=== PATIENT | male | born 1940 | race Caucasian/White ===

== ENCOUNTER → 2016-11-10 | Outpatient (CLI) | payer MEDICARE, BC ==
--- NOTE | 2016-11-10 11:27 | XR ---
EXAMINATION TYPE: XR hand complete LT DATE OF EXAM: 11/10/2016 10:30 AM CLINICAL HISTORY: Laceration injury third digit with pain. Hyperextension thumb injury yesterday. TECHNIQUE: Frontal, lateral and oblique images of the left hand are obtained. COMPARISON: None. FINDINGS: There is no acute fracture/dislocation evident in the left hand. There is joint space loss with spurring base of first metacarpal. The overlying soft tissue appears unremarkable without radi odense foreign body seen. IMPRESSION: There is no acute fracture or dislocation in the left hand. Degenerative change base of first metacarpal noted.
== END | disposition home or self-care (01) ==
LOC: RADXRMAIN 10:13
PROVIDERS: ATTEND Internal Medicine Geriatric Medicine
DX: M79.642 Pain in left hand (principal)

== ENCOUNTER 2017-09-06 18:59 | Emergency (ER) | payer MEDICARE, BC ==
[2017-09-06] MEDS ORDERED: GLUCAGON 1 MG/ML VIAL IVP STA (19:17)
[2017-09-06] MEDS ORDERED: GLUCAGON 1 MG/ML VIAL IM STA (19:25)
--- NOTE | 2017-09-06 20:15 | ED ---
General Adult HPI - General Chief complaint: Recheck/Abnormal Lab/Rx Stated complaint: fb in throat Time Seen by Provider: 09/06/17 19:11 Source: patient Mode of arrival: ambulatory Limitations: no limitations - History of Present Illness Initial comments: Abdomen 7 years old male was eating at a restaurant, he felt some food got stuck in his throat he came to the ER, he has no trouble breathing is able to drink B Jonas but he feels nauseous he denies any history of gastroesophageal reflux disease or hiatal hernia he denies any difficulty breathing. No chest pain or shortness of breath no abdominal pain no frequency urgency dysuria no signs of any smoking at this point - Related Data Home Medications Medication Instructions Recorded Confirmed Multivitamin [Men's Multi-Vitamin] 1 each PO DAILY 01/08/16 09/06/17 Omeprazole [Omeprazole] 20 mg PO DAILY PRN 01/08/16 09/06/17 Simvastatin [Simvastatin] 20 mg PO HS 01/08/16 09/06/17 Calcium Carbonate/Vitamin D3 1 tab PO DAILY 09/06/17 09/06/17 [Calcium 600-Vit D3 400 Caplet] Glucosamine Sulfate 1,000 mg PO DAILY 09/06/17 09/06/17 Allergies Allergy/AdvReac Type Severity Reaction Status Date / Time amoxicillin trihydrate AdvReac ITCHING Verified 09/06/17 20:07 [From Trimox] AND JOINT PAIN Sulfa (Sulfonamide AdvReac ITCHING Verified 09/06/17 20:07 Antibiotics) AND JOINT PAIN sulfamethoxazole AdvReac ITCHING Verified 09/06/17 20:07 [From Bactrim] AND JOINT PAIN trimethoprim [From Bactrim] AdvReac ITCHING Verified 09/06/17 20:07 AND JOINT PAIN Review of Systems ROS Statement: Those systems with pertinent positive or pertinent negative responses have been documented in the HPI. ROS Other: All systems not noted in ROS Statement are negative. Past Medical History Past Medical History: Cancer, GERD/Reflux, Hyperlipidemia Additional Past Medical History / Comment(s): NON HODGKINS LYMPHOMA-. PROSTATE CANCER History of Any Multi-Drug Resistant Organisms: None Reported Past Surgical History: Prostate Surgery, Tonsillectomy Additional Past Surgical History / Comment(s): COLONOSCOPY Past Anesthesia/Blood Transfusion Reactions: No Reported Reaction Past Psychological History: No Psychological Hx Reported Smoking Status: Former smoker - Past Family History Sister(s) Family Medical History: Cancer Additional Family Medical History / Comment(s): 2 SISTERS- 1 WITH BREAST CA AND THE OTHER WITH COLON CA General Exam - General Exam Comments Initial Comments: General: The patient is awake and alert, in no distress, and does not appear acutely ill. No distress at all breathing while talking well Skin: Skin is warm and dry and no rashes or lesions are noted. Eye: Pupils are equal, round and reactive to light, extra-ocular movements are intact; there is normal conjunctiva bilaterally. Ears, nose, mouth and throat: There are moist mucous membranes and no oral lesions. Neck: The neck is supple, there is no tenderness or JVD. Cardiovascular: There is a regular rate and rhythm. No murmur, rub or gallop is appreciated. Respiratory: To auscultation bilateral, no wheezing no rhonchi no distress respiratory villa noticed Gastrointestinal: Soft, non-distended, non-tender abdomen without masses or organomegaly noted. There is no rebound or guarding present. Bowel sounds are unremarkable. Back: There is no tenderness to palpation in the midline. There is no obvious deformity. Musculoskeletal: Normal ROM, no tenderness, There is no pedal edema. There is no calf tenderness or swelling. No cords were appreciated. Neurological: CN II-XII intact, Cranial nerves III through XII are intact. There are no obvious motor or sensory deficits. Coordination appears grossly intact. Speech is normal. Psychiatric: Cooperative, appropriate mood & affect, normal judgment. Limitations: no limitations Course Vital Signs 09/06/17 19:03 Temperature 97.1 F L Pulse Rate 74 Respiratory 17 Rate Blood Pressure 163/74 O2 Sat by Pulse 99 Oximetry May glucagon 1 mg subcu, patient was reassessed 20 minutes later is feeling a foreign body in the esophagus has resolved he is pretty well he is eating well he is talking well and his right carpal Disposition Clinical Impression: Foreign body in esophagus Disposition: ADMITTED IP TO THIS HOSP Condition: Good Instructions: Esophageal Foreign Body (ED) Referrals: Saurabh Mccracken MD [Primary Care Provider] - 1-2 days
[2017-09-06 20:26] VITALS: BP 142/78; PULSE 71; RESP 18; TEMP 96.8
== END 2017-09-06 20:26 | disposition other institution (70) ==
LOC: EC 18:59
DX: T18.128A Food in esophagus causing other injury, initial encounter (principal); E78.5 Hyperlipidemia, unspecified; Z88.1 Allergy status to other antibiotic agents; Z88.2 Allergy status to sulfonamides; Z79.899 Other long term (current) drug therapy; Z87.891 Personal history of nicotine dependence; Y92.511 Restaurant or cafe as the place of occurrence of the external cause
CPT/HCPCS: 99283; 96372; J1610

== ENCOUNTER → 2020-03-26 | Outpatient (CLI) | payer MEDICARE, BC | END | disposition home or self-care (01) | LOC: LABWHC1 11:37 | PROVIDERS: ATTEND Urology | DX: C61 Malignant neoplasm of prostate (principal) | CPT/HCPCS: 36415; 84153 ==

== ENCOUNTER → 2022-01-20 | Outpatient (CLI) | payer MEDICARE, BC | END | disposition home or self-care (01) | LOC: LABWHC1 13:54 | PROVIDERS: ATTEND Urology | DX: C61 Malignant neoplasm of prostate (principal) | CPT/HCPCS: 36415; 84153 ==

== ENCOUNTER → 2023-04-19 | Outpatient (CLI) | payer MEDICARE, BC ==
[2023-04-19 15:41] LABS: Basophils # (A) 0.03 X 10*3/uL (0.00-0.10); Basophils % (A) 0.4 %; Eosinophils # (A) 0.18 X 10*3/uL (0.04-0.35); Eosinophils % (A) 2.4 %; HCT 41.6 % (39.6-50.0); HGB 13.2 d/dL (13.0-17.0); Lymphocytes # (A) 1.55 X 10*3/uL (0.90-5.00); Lymphocytes % (A) 20.7 %; MCH 32.2 pg (27.0-32.0); MCHC 31.7 d/dL (32.0-37.0); MCV 101.5 FL (80.0-97.0); Mean Platelet Volume 11.8 FL (9.5-12.2); Monocytes # (A) 0.56 X 10*3/uL (0.20-1.00); Monocytes % (A) 7.5 %; NRBC Per 100 WBC 0 X 10*3/uL (0.00-0.01); Neutrophils # (A) 5.15 X 10*3/uL (1.80-7.70); Neutrophils % (A) 68.7 %; Platelet Count 176 X 10*3/uL (140-440); RDW 13.1 % (11.5-14.5); WBC 7.49 X 10*3/uL (4.50-10.00)
[2023-04-19 16:17] LABS: ALT 17 U/L (10-49); AST 19 U/L (14-35); Albumin 4.3 d/dL (3.8-4.9); Albumin/Globulin Ratio 2.26 Ratio (1.60-3.17); Alkaline Phosphatase 75 U/L (41-126); BUN/Creat Ratio 10.72 Ratio (12.00-20.00); Blood Urea Nitrogen 19.3 mg/dL (9.0-27.0); Calcium 9.4 mg/dL (8.7-10.3); Carbon Dioxide 26.3 mmol/L (21.6-31.8); Chloride 105 mmol/L (96-109); Chol/HDL Ratio 2.46 Ratio; Globulin 1.9 d/dL (1.6-3.3); Glucose 106 mg/dL (70-110); Potassium 4.8 mmol/L (3.5-5.5); Sodium 142 mmol/L (135-145); Total Bilirubin 0.3 mg/dL (0.3-1.2); Total Protein 6.2 d/dL (6.2-8.2); Uric Acid 5.3 mg/dL (3.7-8.7); VLDL Calculation 14.04 mg/dL (5.00-40.00)
[2023-04-19 16:26] LABS: Prostate Specific Antigen <0.01 ng/mL (0.000-6.500)
== END | disposition home or self-care (01) ==
LOC: LABWHC1 09:15
PROVIDERS: ATTEND Urology
DX: C85.90 Non-Hodgkin lymphoma, unspecified, unspecified site (principal); C61 Malignant neoplasm of prostate; I25.10 Atherosclerotic heart disease of native coronary artery without angina pectoris; N18.9 Chronic kidney disease, unspecified; R73.9 Hyperglycemia, unspecified
CPT/HCPCS: 36415; 80053; 80061; 83036; 84153; 84443; 84550; 85025

== ENCOUNTER 2023-10-17 10:57 | Inpatient (IN) | payer MEDICARE, BC ==
--- NOTE | 2023-10-17 11:38 | ED ---
SOB HPI - General Chief Complaint: Shortness of Breath Stated Complaint: rupal Time Seen by Provider: 10/17/23 11:14 Source: patient, family, RN notes reviewed Mode of arrival: ambulatory Limitations: no limitations - History of Present Illness Initial Comments: This is an 83-year-old male who presents to the emergency department for shortness of breath and weakness. Patient reports over the last 2 to 3 days he has felt increasingly weak and has had absolutely no energy. Feels like all he wants to do is sleep. He has also been increasingly short of breath. Reports an associated cough over the last couple of days. States that the last time he felt this weak was when he was undergoing chemotherapy, which was 10 to 12 years ago. Denies any history of cardiac or pulmonary issues such as COPD or CHF. He does not have any chest pain or swelling in the extremities. He does also note concerns with a yeast infection of the penile shaft. He has been dealing with this on and off for several weeks. His is concerned that he has not been consistent with medication. Patient denies any urinary symptoms and states that this is not painful or itchy. MD Complaint: shortness of breath, cough - Related Data Home Medications Medication Instructions Recorded Confirmed Omeprazole 20 mg PO DAILY 01/08/16 10/17/23 Empagliflozin [Jardiance] 10 mg PO DAILY 10/17/23 10/17/23 Glucosamine/Chondr Romero A Sod [Osteo 1 tab PO DAILY 10/17/23 10/17/23 Bi-Flex Caplet] Rosuvastatin [Crestor] 10 mg PO HS 10/17/23 10/17/23 Vitamin C(Unknown Dose) 1 tab PO DAILY 10/17/23 10/17/23 Vitamin D3(Unknown Dose) 1 tab PO DAILY 10/17/23 10/17/23 allopurinoL 100 mg PO DAILY 10/17/23 10/17/23 Allergies Allergy/AdvReac Type Severity Reaction Status Date / Time amoxicillin trihydrate AdvReac ITCHING Verified 10/17/23 15:40 [From Trimox] AND JOINT PAIN Sulfa (Sulfonamide AdvReac ITCHING Verified 10/17/23 15:40 Antibiotics) AND JOINT PAIN sulfamethoxazole AdvReac ITCHING Verified 10/17/23 15:40 [From Bactrim] AND JOINT PAIN trimethoprim [From Bactrim] AdvReac ITCHING Verified 10/17/23 15:40 AND JOINT PAIN Review of Systems ROS Statement: Those systems with pertinent positive or pertinent negative responses have been documented in the HPI. ROS Other: All systems not noted in ROS Statement are negative. Past Medical History Past Medical History: Cancer, GERD/Reflux, Hyperlipidemia Additional Past Medical History / Comment(s): NON HODGKINS LYMPHOMA-. PROSTATE CANCER History of Any Multi-Drug Resistant Organisms: None Reported Past Surgical History: Prostate Surgery, Tonsillectomy Additional Past Surgical History / Comment(s): COLONOSCOPY Past Anesthesia/Blood Transfusion Reactions: No Reported Reaction Past Psychological History: No Psychological Hx Reported Smoking Status: Former smoker Past Alcohol Use History: Occasional Past Drug Use History: None Reported - Past Family History Sister(s) Family Medical History: Cancer Additional Family Medical History / Comment(s): 2 SISTERS- 1 WITH BREAST CA AND THE OTHER WITH COLON CA General Exam Limitations: no limitations General appearance: alert, in no apparent distress Head exam: Present: atraumatic, normocephalic, normal inspection Respiratory exam: Present: normal lung sounds bilaterally. Absent: respiratory distress, wheezes, rales, rhonchi, stridor Cardiovascular Exam: Present: regular rate, normal rhythm, normal heart sounds. Absent: systolic murmur, diastolic murmur, rubs, gallop, clicks exam: Present: other (Erythema and white material along the penile shaft. No tenderness. No penile discharge.) Neurological exam: Present: alert, oriented X3, CN II-XII intact Psychiatric exam: Present: normal affect, normal mood Skin exam: Present: warm, dry, intact, normal color. Absent: rash Course Vital Signs 10/17/23 10/17/23 10/17/23 11:00 12:32 14:46 Temperature 97.8 F Pulse Rate 97 83 66 Respiratory 24 20 20 Rate Blood Pressure 110/66 109/58 106/67 O2 Sat by Pulse 93 L 93 L 91 L Oximetry 10/17/23 15:00 Temperature Pulse Rate Respiratory Rate Blood Pressure O2 Sat by Pulse 98 Oximetry Medical Decision Making - Medical Decision Making This is an 83-year-old male who presents to the emergency department for shortness of breath and weakness. Was pt. sent in by a medical professional or institution? @ -No Did you speak to anyone other than the patient for history? @ -His provided the information about not being consistent with medication for the yeast infection. Did you review nursing and triage notes? @ -Yes, and I agree, it is accurate with regards to the patient's symptoms. Were old charts reviewed? @ -No Differential Diagnosis? @ -Differential Dyspnea: Coronary syndrome, arrhythmia, tamponade, asthma, COPD, pulmonary embolism, pneumonia, pneumothorax, pulmonary effusion, anaphylaxis, diabetic ketoacidosis, flailed chest, pulmonary contusion, diaphragmatic rupture, anemia, neuromuscular, this is not meant to be an all-inclusive list. EKG interpreted by me (3pts min.)? @ -EKG interpreted by me demonstrating the following: Sinus rhythm. Ventricular rate 92 bpm, NC interval 163 ms, QRS duration 84 ms, QTc 397 ms. X-rays interpreted by me (1pt min.)? @ -Chest x-ray obtained. My interpretation identifies a left basilar airspace opacity. CT interpreted by me (1pt min.)? @ -Not obtained U/S interpreted by me (1pt. min.)? @ -Not obtained What testing was considered but not performed? (CT, X-rays, U/S, labs)? Why? @ -None What meds were considered but not given? Why? @ -None Did you discuss the management of the patient with other professionals? @ -Yes, Dr. Bah, who accepts the patient for admission. Did you reconcile home meds? @ -Yes Was smoking cessation discussed for >3mins.? @ -No Was critical care preformed (if so, how long)? @ -No Were there social determinants of health that impacted care today? How? (Homelessness, low income, unemployed, alcoholism, drug addiction, transportation, low edu. Level, literacy, decrease access to med. care, fci, rehab)? @ -No Was there de-escalation of care discussed even if they declined? (Discuss DNR or withdrawal of care, Hospice)? @ -No What co-morbidities impacted this encounter? (DM, HTN, Smoking, COPD, CAD, Cancer, CVA, Hep., AIDS, mental health diagnosis, sleep apnea, morbid obesity)? @ -None Was patient admitted / discharged? @ -Admitted. Lab work demonstrates leukocytosis with a white blood cell count of 20.7. Lactic acid elevated at 2.4. Decreased renal function is fairly stable when compared with prior. COVID, influenza, and RSV testing are negative. Chest x-ray demonstrates a left basilar airspace opacity suggestive of pneumonia. Patient appeared to have candidal infection on the penile shaft as well. He was given a dose of Diflucan for this. Given the patient's progressive weakness along with his age and evidence of pneumonia, he was admitted to medicine for further management and IV antibiotics. Blood and sputum cultures obtained and he was started on the pneumonia protocol with ceftr iaxone and azithromycin. Consult placed for pulmonology and infectious disease per the admitting team's request. Undiagnosed new problem with uncertain prognosis? @ -None Drug Therapy requiring intensive monitoring for toxicity (Heparin, Nitro, Insulin, Cardizem)? @ -None Were any procedures done? @ -None Diagnosis/symptom? @ -Pneumonia, weakness Acute, or Chronic, or Acute on Chronic? @ -Acute Uncomplicated (without systemic symptoms) or Complicated (systemic symptoms)? @ -Complicated Side effects of treatment? @ -None Exacerbation, Progression, or Severe Exacerbation] @ -Not applicable Poses a threat to life or bodily function? @ -Yes This case was discussed in detail with the attending ED physician, Dr. Oh. Presentation, findings, and treatment plan discussed in detail as well. - Lab Data Result diagrams: 10/17/23 11:14 10/17/23 11:14 Lab Results 10/17/23 10/17/23 10/17/23 Range/Units 11:14 11:14 11:14 WBC 20.6 H (3.8-10.6) k/uL RBC 4.34 (4.30-5.90) m/uL Hgb 14.3 (13.0-17.5) gm/dL Hct 44.0 (39.0-53.0) % MCV 101.5 H (80.0-100.0) fL MCH 33.0 (25.0-35.0) pg MCHC 32.5 (31.0-37.0) g/dL RDW 13.2 (11.5-15.5) % Plt Count 194 (150-450) k/uL MPV 9.9 Neutrophils % 92 % Lymphocytes % 3 % Monocytes % 3 % Eosinophils % 1 % Basophils % 0 % Neutrophils # 18.9 H (1.3-7.7) k/uL Lymphocytes # 0.7 L (1.0-4.8) k/uL Monocytes # 0.7 (0-1.0) k/uL Eosinophils # 0.1 (0-0.7) k/uL Basophils # 0.1 (0-0.2) k/uL Macrocytosis Slight PT 11.5 (10.0-12.5) sec INR 1.1 (<1.2) APTT 23.1 (22.0-30.0) sec Sodium 138 (137-145) mmol/L Potassium 4.6 (3.5-5.1) mmol/L Chloride 105 (98-107) mmol/L Carbon Dioxide 19 L (22-30) mmol/L Anion Gap 14 mmol/L BUN 26 H (9-20) mg/dL Creatinine 1.85 H (0.66-1.25) mg/dL Est GFR (CKD-EPI)AfAm 38 (>60 ml/min/1.73 sqM) Est GFR (CKD-EPI)NonAf 33 (>60 ml/min/1.73 sqM) Glucose 115 H (74-99) mg/dL Lactic Ac Sepsis Rflx Plasma Lactic Acid Ricardo (0.7-2.0) mmol/L Calcium 9.2 (8.4-10.2) mg/dL Total Bilirubin 1.6 H (0.2-1.3) mg/dL AST 30 (17-59) U/L ALT 32 (4-49) U/L Alkaline Phosphatase 129 H (38-126) U/L Troponin I (0.000-0.034) ng/mL C-Reactive Protein (<1.0) mg/dL Total Protein 6.2 L (6.3-8.2) g/dL Albumin 3.8 (3.5-5.0) g/dL Influenza Type A (PCR) (Not Detectd) Influenza Type B (PCR) (Not Detectd) RSV (PCR) (Not Detectd) SARS-CoV-2 (PCR) (Not Detectd) 10/17/23 10/17/23 10/17/23 Range/Units 11:14 11:14 11:14 WBC (3.8-10.6) k/uL RBC (4.30-5.90) m/uL Hgb (13.0-17.5) gm/dL Hct (39.0-53.0) % MCV (80.0-100.0) fL MCH (25.0-35.0) pg MCHC (31.0-37.0) g/dL RDW (11.5-15.5) % Plt Count (150-450) k/uL MPV Neutrophils % % Lymphocytes % % Monocytes % % Eosinophils % % Basophils % % Neutrophils # (1.3-7.7) k/uL Lymphocytes # (1.0-4.8) k/uL Monocytes # (0-1.0) k/uL Eosinophils # (0-0.7) k/uL Basophils # (0-0.2) k/uL Macrocytosis PT (10.0-12.5) sec INR (<1.2) APTT (22.0-30.0) sec Sodium (137-145) mmol/L Potassium (3.5-5.1) mmol/L Chloride (98-107) mmol/L Carbon Dioxide (22-30) mmol/L Anion Gap mmol/L BUN (9-20) mg/dL Creatinine (0.66-1.25) mg/dL Est GFR (CKD-EPI)AfAm (>60 ml/min/1.73 sqM) Est GFR (CKD-EPI)NonAf (>60 ml/min/1.73 sqM) Glucose (74-99) mg/dL Lactic Ac Sepsis Rflx Plasma Lactic Acid Ricardo 2.4 H* (0.7-2.0) mmol/L Calcium (8.4-10.2) mg/dL Total Bilirubin (0.2-1.3) mg/dL AST (17-59) U/L ALT (4-49) U/L Alkaline Phosphatase (38-126) U/L Troponin I <0.012 (0.000-0.034) ng/mL C-Reactive Protein (<1.0) mg/dL Total Protein (6.3-8.2) g/dL Albumin (3.5-5.0) g/dL Influenza Type A (PCR) Not Detected (Not Detectd) Influenza Type B (PCR) Not Detected (Not Detectd) RSV (PCR) Not Detected (Not Detectd) SARS-CoV-2 (PCR) Not Detected (Not Detectd) 10/17/23 10/17/23 Range/Units 11:14 12:39 WBC (3.8-10.6) k/uL RBC (4.30-5.90) m/uL Hgb (13.0-17.5) gm/dL Hct (39.0-53.0) % MCV (80.0-100.0) fL MCH (25.0-35.0) pg MCHC (31.0-37.0) g/dL RDW (11.5-15.5) % Plt Count (150-450) k/uL MPV Neutrophils % % Lymphocytes % % Monocytes % % Eosinophils % % Basophils % % Neutrophils # (1.3-7.7) k/uL Lymphocytes # (1.0-4.8) k/uL Monocytes # (0-1.0) k/uL Eosinophils # (0-0.7) k/uL Basophils # (0-0.2) k/uL Macrocytosis PT (10.0-12.5) sec INR (<1.2) APTT (22.0-30.0) sec Sodium (137-145) mmol/L Potassium (3.5-5.1) mmol/L Chloride (98-107) mmol/L Carbon Dioxide (22-30) mmol/L Anion Gap mmol/L BUN (9-20) mg/dL Creatinine (0.66-1.25) mg/dL Est GFR (CKD-EPI)AfAm (>60 ml/min/1.73 sqM) Est GFR (CKD-EPI)NonAf (>60 ml/min/1.73 sqM) Glucose (74-99) mg/dL Lactic Ac Sepsis Rflx Y Plasma Lactic Acid Ricardo (0.7-2.0) mmol/L Calcium (8.4-10.2) mg/dL Total Bilirubin (0.2-1.3) mg/dL AST (17-59) U/L ALT (4-49) U/L Alkaline Phosphatase (38-126) U/L Troponin I (0.000-0.034) ng/mL C-Reactive Protein 31.2 H (<1.0) mg/dL Total Protein (6.3-8.2) g/dL Albumin (3.5-5.0) g/dL Influenza Type A (PCR) (Not Detectd) Influenza Type B (PCR) (Not Detectd) RSV (PCR) (Not Detectd) SARS-CoV-2 (PCR) (Not Detectd) - Radiology Data Radiology results: report reviewed, image reviewed Disposition Clinical Impression: Pneumonia, Weakness Disposition: ADMITTED IP TO THIS HOSP Time of Disposition: 13:00
[2023-10-17 11:57] LABS: Basophils # (A) 0.1 k/uL (0-0.2); Basophils % (A) 0 %; Eosinophils # (A) 0.1 k/uL (0-0.7); Eosinophils % (A) 1 %; HGB 14.3 gm/dL (13.0-17.5); Lymphocytes # (A) 0.7 k/uL (1.0-4.8); Lymphocytes % (A) 3 %; MCHC 32.5 g/dL (31.0-37.0); MCV 101.5 fL (80.0-100.0); Macrocytosis Slight; Mean Platelet Volume 9.9; Monocytes # (A) 0.7 k/uL (0-1.0); Monocytes % (A) 3 %; Neutrophils # (A) 18.9 k/uL (1.3-7.7); Neutrophils % (A) 92 %; Platelet Count 194 k/uL (150-450); RBC 4.34 m/uL (4.30-5.90); RDW 13.2 % (11.5-15.5); WBC 20.6 k/uL (3.8-10.6)
[2023-10-17] MEDS: SODIUM CHLORIDE 0.9% 1,000 ML IV STA (11:58)
[2023-10-17] MEDS: FLUCONAZOLE 150 MG TAB PO STA (12:10)
[2023-10-17 12:40] LABS: ALT 32 U/L (4-49); AST 30 U/L (17-59); African American GFR (CKD) 38 (>60 ml/min/1.73 sqM); Albumin 3.8 g/dL (3.5-5.0); Alkaline Phosphatase 129 U/L (38-126); Anion Gap 14 mmol/L; Blood Urea Nitrogen 26 mg/dL (9-20); Calcium 9.2 mg/dL (8.4-10.2); Carbon Dioxide 19 mmol/L (22-30); Chloride 105 mmol/L (98-107); Glucose 115 mg/dL (74-99); Non-African American GFR(CKD) 33 (>60 ml/min/1.73 sqM); Potassium 4.6 mmol/L (3.5-5.1); Sodium 138 mmol/L (137-145); Total Bilirubin 1.6 mg/dL (0.2-1.3); Total Protein 6.2 g/dL (6.3-8.2)
--- NOTE | 2023-10-17 12:48 | XR ---
EXAMINATION TYPE: XR chest 2V DATE OF EXAM: 10/17/2023 12:04 PM CLINICAL INDICATION:Male, 83 years old with history of difficulty breathing; [facility] COMPARISON: Chest radiographs from 11/04/2011 TECHNIQUE: XR chest 2V Frontal and lateral views of the chest. FINDINGS: Lungs/Pleura: Left basilar airspace opacities. There is flattening of the diaphragm with increased serg cency of the lungs. No evidence of pneumothorax, pleural effusion or focal consolidation. Pulmonary vascularity: Unremarkable. Heart/mediastinum: Cardiomediastinal silhouette is unremarkable. Musculoskeletal: No acute osseous pathology. Other findings: None IMPRESSION: 1. Left basilar airspace opacities correlate for pneumonia. 2. COPD changes.
[2023-10-17] MEDS ORDERED: PNEUMONIA PROTOCOL UTILIZED 1 EACH MISC PO PRN (12:53)
[2023-10-17] MEDS ORDERED: NALOXONE 0.4 MG/ML 1 ML VIAL IV PRN (12:59)
[2023-10-17] MEDS ORDERED: MORPHINE SULFATE 4 MG/ML SYRINGE IV PRN (12:59)
[2023-10-17] MEDS ORDERED: ACETAMINOPHEN TAB 325 MG TAB PO PRN (12:59)
[2023-10-17] MEDS ORDERED: HYDROcodone/APAP 5-325MG 1 EACH TAB PO PRN (12:59)
[2023-10-17] MEDS ORDERED: ONDANSETRON 4 MG/2 ML VIAL IVP PRN (12:59)
[2023-10-17] MEDS: SODIUM CHLORIDE 0.9% 1,000 ML IV SCH (14:06)
[2023-10-17 14:11] LABS: INR 1.1 (<1.2); Partial Thromboplastin Time 23.1 sec (22.0-30.0); Prothrombin Time 11.5 sec (10.0-12.5)
[2023-10-17] MEDS ORDERED: MELATONIN 5 MG TABLET PO PRN (14:19)
--- NOTE | 2023-10-17 14:19 | P.HPIM ---
History of Present Illness H&P Date: 10/17/23 History of present illness; patient is a 83-year-old gentleman with past medical history significant for hyperlipidemia was brought to the ER for complaint of not feeling well for the last few days. Patient stated that he was all right till Wednesday when he started noticing that he was getting weak and feeling lethargic. Patient stated he felt as if he had no energy to do any activity. Patient is also noticing that he was getting chills and felt feverish, patient did not check his fever at home. Patient also complaining of cough is nonproductive. Complaining of shortness of breath on exertion as well. Denies any nausea, vomiting abdominal pain. There is no complaint of orthopnea or PND. Denies any chest pain. Over the last day his symptoms worsen and he felt very weak and decided come to the ER Initial lab work done in the ER showed WBC 20.6, hemoglobin 14.3, platelet count 194, sodium 130, potassium 4.6, BUN 26, creatinine 1.85, lactate 2.4, bilirubin 1.6 Influenza A not detected Influenza B not detected RSV not detected COVID-19 not detected EKG done in the ER showed heart rate of 92, no ST segment elevation or depression seen, no T-wave inversions seen. Chest x-ray done in the ER showed left basilar airspace opacities suspicious for pneumonia, COPD changes Patient admitted to internal medicine service REVIEW OF SYSTEMS: CONSTITUTIONAL: As mentioned in HPI HEENT: No recent visual problems or hearing problems. Denied any sore throat. CARDIOVASCULAR: As mentioned HPI PULMONARY: As mentioned HPI GASTROINTESTINAL: No diarrhea, no nausea, no vomiting, no abdominal pain. NEUROLOGICAL: No headaches, no weakness, no numbness. HEMATOLOGICAL: Denies any bleeding or petechiae. GENITOURINARY: Denies any burning micturition, frequency, or urgency. MUSCULOSKELETAL/RHEUMATOLOGICAL: Denies any joint pain, swelling, or any muscle pain. ENDOCRINE: Denies any polyuria or polydipsia. The rest of the 14-point review of systems is negative. PHYSICAL EXAMINATION: GENERAL: The patient is alert and oriented x3, not in any acute distress. Well developed, well nourished. HEENT: Pupils are round and equally reacting to light. EOMI. No scleral icterus. No conjunctival pallor. Normocephalic, atraumatic. No pharyngeal erythema. No thyromegaly. CARDIOVASCULAR: S1 and S2 present. No murmurs, rubs, or gallops. PULMONARY: Chest is clear to auscultation, no wheezing or crackles. ABDOMEN: Soft, nontender, nondistended, normoactive bowel sounds. No palpable organomegaly. MUSCULOSKELETAL: No joint swelling or deformity. EXTREMITIES: No cyanosis, clubbing, or pedal edema. NEUROLOGICAL: Gross neurological examination did not reveal any focal deficits. SKIN: No rashes. Assessment and plan Sepsis Bacterial pneumonia Lactic acidosis Acute kidney injury Hyperlipidemia Monitor vital signs Monitor CBC Monitor CMP Continue telemetry monitoring Follow-up on blood cultures Aggressive bronchopulmonary hygiene Continue breathing treatment Continue IV Rocephin azithromycin Continue IV fluids Resume home meds Consult pulmonary Consult ID Labs and medication were reviewed.. Continue same treatment. Continue with symptomatic treatment. Resume home medication. Monitor labs and vitals. DVT and GI prophylaxis. Further recommendations as per clinical course of the patient Dictation was produced using [employer] dictation software. please excuse any grammatical, word or spelling errors. Past Medical History Past Medical History: Cancer, GERD/Reflux, Hyperlipidemia Additional Past Medical History / Comment(s): NON HODGKINS LYMPHOMA-. PROSTATE CANCER History of Any Multi-Drug Resistant Organisms: None Reported Past Surgical History: Prostate Surgery, Tonsillectomy Additional Past Surgical History / Comment(s): COLONOSCOPY Past Anesthesia/Blood Transfusion Reactions: No Reported Reaction Past Psychological History: No Psychological Hx Reported Smoking Status: Former smoker Past Alcohol Use History: Occasional Past Drug Use History: None Reported - Past Family History Sister(s) Family Medical History: Cancer Additional Family Medical History / Comment(s): 2 SISTERS- 1 WITH BREAST CA AND THE OTHER WITH COLON CA Medications and Allergies Home Medications Medication Instructions Recorded Confirmed Type Multivitamin [Men's Multi-Vitamin] 1 each PO DAILY 01/08/16 09/06/17 History Omeprazole 20 mg PO DAILY PRN 01/08/16 09/06/17 History Simvastatin 20 mg PO HS 01/08/16 09/06/17 History Calcium Carbonate/Vitamin D3 1 tab PO DAILY 09/06/17 09/06/17 History [Calcium 600-Vit D3 400 Caplet] Glucosamine Sulfate 1,000 mg PO DAILY 09/06/17 09/06/17 History Allergies Allergy/AdvReac Type Severity Reaction Status Date / Time amoxicillin trihydrate AdvReac ITCHING Verified 09/06/17 20:07 [From Trimox] AND JOINT PAIN Sulfa (Sulfonamide AdvReac ITCHING Verified 09/06/17 20:07 Antibiotics) AND JOINT PAIN sulfamethoxazole AdvReac ITCHING Verified 09/06/17 20:07 [From Bactrim] AND JOINT PAIN trimethoprim [From Bactrim] AdvReac ITCHING Verified 09/06/17 20:07 AND JOINT PAIN Physical Exam Vitals: Vital Signs Temp Pulse Resp BP Pulse Ox 10/17/23 12:32 83 20 109/58 93 L 10/17/23 11:00 97.8 F 97 24 110/66 93 L Intake and Output 10/16/23 10/17/23 10/17/23 22:59 06:59 14:59 Other: Weight 78.925 kg Results CBC & Chem 7: 10/17/23 11:14 10/17/23 11:14 Labs: Abnormal Lab Results - Last 24 Hours (Table) 10/17/23 10/17/23 10/17/23 Range/Units 11:14 11:14 11:14 WBC 20.6 H (3.8-10.6) k/uL MCV 101.5 H (80.0-100.0) fL Neutrophils # 18.9 H (1.3-7.7) k/uL Lymphocytes # 0.7 L (1.0-4.8) k/uL Carbon Dioxide 19 L (22-30) mmol/L BUN 26 H (9-20) mg/dL Creatinine 1.85 H (0.66-1.25) mg/dL Glucose 115 H (74-99) mg/dL Plasma Lactic Acid Ricardo 2.4 H* (0.7-2.0) mmol/L Total Bilirubin 1.6 H (0.2-1.3) mg/dL Alkaline Phosphatase 129 H (38-126) U/L Total Protein 6.2 L (6.3-8.2) g/dL
[2023-10-17 14:41] LABS: Appearance,Urine Clear (Clear); Bilirubin,Urine Negative (Negative); Blood,Urine Negative (Negative); Color,Urine Light Yellow; Glucose,Urine (UA) 4+ (Negative); Ketones,Urine 1+ (Negative); Leukocyte Esterase,Urine Negative (Negative); Nitrite,Urine Negative (Negative); PH, Urine 5.5 (5.0-8.0); Protein,Urine Trace (Negative); Specific Gravity,Urine 1.022 (1.001-1.035); Urobilinogen,Urine <2.0 mg/dL (<2.0)
[2023-10-17] MEDS: AZITHROMYCIN 500 MG in SODIUM CHLORIDE 0.9% 250 ML IVPB STA (17:14)
[2023-10-17] MEDS: ATORVASTATIN 20 MG TAB PO SCH (20:33)
[2023-10-17] MEDS: guaiFENesin 600 MG TABLET.ER PO SCH (20:33)
--- NOTE | 2023-10-17 23:05 | P.CONS ---
History of Present Illness - Reason for Consult Consult date: 10/17/23 Pneumonia Requesting physician: Anna Hastings - Chief Complaint Increasing shortness of breath and weakness x few days - History of Present Illness Patient is a 83-year-old male with a past medical history significant for reflux hyperlipidemia , non-Hodgkin lymphoma and prostate cancer patient was brought into the hospital for evaluation of increasing shortness of breath and weakness patient symptom has been getting worse for the last 2 to 3 days as the patient has been very increasingly feeling weak and no energy the patient also having a cough mild to moderate intensity and is bringing up some yellow sputum no hemoptysis no pleuritic chest pain with associated shortness of breath with worsening symptoms the patient was brought into the hospital on arrival to the ER the patient was afebrile patient was not tachycardic hypotensive mildly hypoxic currently on 2 L nasal cannula oxygen he did have a white count of 20.6 with a left shift BUN/creatinine has been mildly elevated lactic acid was 2.4 liver isms are normal UA was negative influenza RSV COVID testing was negative patient did have a chest x-ray left basilar airspace opacity correlate for pneumonia patient was admitted to the hospital infectious disease was consulted for further management of antibiotic therapy Review of Systems Positive point and negatives has been mentioned in the HPI, complete review of systems was performed and all other systems are negative Past Medical History Past Medical History: Cancer, GERD/Reflux, Hyperlipidemia Additional Past Medical History / Comment(s): NON HODGKINS LYMPHOMA-. PROSTATE CANCER History of Any Multi-Drug Resistant Organisms: None Reported Past Surgical History: Prostate Surgery, Tonsillectomy Additional Past Surgical History / Comment(s): COLONOSCOPY Past Anesthesia/Blood Transfusion Reactions: No Reported Reaction Past Psychological History: No Psychological Hx Reported Smoking Status: Former smoker Past Alcohol Use History: Occasional Past Drug Use History: None Reported - Past Family History Sister(s) Family Medical History: Cancer Additional Family Medical History / Comment(s): 2 SISTERS- 1 WITH BREAST CA AND THE OTHER WITH COLON CA Medications and Allergies Home Medications Medication Instructions Recorded Confirmed Type Omeprazole 20 mg PO DAILY 01/08/16 10/17/23 History Empagliflozin [Jardiance] 10 mg PO DAILY 10/17/23 10/17/23 History Glucosamine/Chondr Romero A Sod [Osteo 1 tab PO DAILY 10/17/23 10/17/23 History Bi-Flex Caplet] Rosuvastatin [Crestor] 10 mg PO HS 10/17/23 10/17/23 History Vitamin C(Unknown Dose) 1 tab PO DAILY 10/17/23 10/17/23 History Vitamin D3(Unknown Dose) 1 tab PO DAILY 10/17/23 10/17/23 History allopurinoL 100 mg PO DAILY 10/17/23 10/17/23 History Albuterol Sulfate [Ventolin HFA] 2 puff INHALATION Q6H PRN #1 each 10/20/23 Rx Doxycycline Hyclate 100 mg PO AC-BID #14 cap 10/20/23 Rx guaiFENesin [Mucinex] 600 mg PO Q12HR #14 tab 10/20/23 Rx methylPREDNISolone Dose Pack 4 mg PO DIRECTED #21 tab 10/20/23 Rx [Medrol Dose Pack] Allergies Allergy/AdvReac Type Severity Reaction Status Date / Time amoxicillin trihydrate AdvReac ITCHING Verified 10/17/23 15:40 [From Trimox] AND JOINT PAIN Sulfa (Sulfonamide AdvReac ITCHING Verified 10/17/23 15:40 Antibiotics) AND JOINT PAIN sulfamethoxazole AdvReac ITCHING Verified 10/17/23 15:40 [From Bactrim] AND JOINT PAIN trimethoprim [From Bactrim] AdvReac ITCHING Verified 10/17/23 15:40 AND JOINT PAIN Physical Exam Vitals: Vital Signs Temp Pulse Resp BP Pulse Ox 10/17/23 14:46 66 20 106/67 91 L 10/17/23 12:32 83 20 109/58 93 L 10/17/23 11:00 97.8 F 97 24 110/66 93 L Intake and Output 10/17/23 10/17/23 10/17/23 06:59 14:59 22:59 Other: Weight 78.925 kg GENERAL DESCRIPTION: Elderly male lying in bed, no distress. No tachypnea or accessory muscle of respiration use. HEENT: Shows Pallor , no scleral icterus. Oral mucous membrane is dry. No pharyngeal erythema or thrush NECK: Trachea central, no thyromegaly. LUNGS: Unlabored breathing. Coarse crackles left base HEART: S1, S2, regular rate and rhythm. No loud murmur ABDOMEN: Soft, no tenderness , guarding or rigidity, no organomegaly EXTREMITIES: No edema of feet. SKIN: No rash, no masses palpable. NEUROLOGICAL: The patient is awake, alert, oriented x3, mood and affect normal. Results CBC & Chem 7: 10/20/23 04:30 10/20/23 04:30 Labs: Abnormal Lab Results - Last 24 Hours (Table) 10/17/23 10/17/23 10/17/23 Range/Units 11:14 11:14 11:14 WBC 20.6 H (3.8-10.6) k/uL MCV 101.5 H (80.0-100.0) fL Neutrophils # 18.9 H (1.3-7.7) k/uL Lymphocytes # 0.7 L (1.0-4.8) k/uL Carbon Dioxide 19 L (22-30) mmol/L BUN 26 H (9-20) mg/dL Creatinine 1.85 H (0.66-1.25) mg/dL Glucose 115 H (74-99) mg/dL Plasma Lactic Acid Ricardo 2.4 H* (0.7-2.0) mmol/L Total Bilirubin 1.6 H (0.2-1.3) mg/dL Alkaline Phosphatase 129 H (38-126) U/L C-Reactive Protein (<1.0) mg/dL Total Protein 6.2 L (6.3-8.2) g/dL Urine Protein (Negative) Urine Glucose (UA) (Negative) Urine Ketones (Negative) 10/17/23 10/17/23 Range/Units 11:14 14:00 WBC (3.8-10.6) k/uL MCV (80.0-100.0) fL Neutrophils # (1.3-7.7) k/uL Lymphocytes # (1.0-4.8) k/uL Carbon Dioxide (22-30) mmol/L BUN (9-20) mg/dL Creatinine (0.66-1.25) mg/dL Glucose (74-99) mg/dL Plasma Lactic Acid Ricardo (0.7-2.0) mmol/L Total Bilirubin (0.2-1.3) mg/dL Alkaline Phosphatase (38-126) U/L C-Reactive Protein 31.2 H (<1.0) mg/dL Total Protein (6.3-8.2) g/dL Urine Protein Trace H (Negative) Urine Glucose (UA) 4+ H (Negative) Urine Ketones 1+ H (Negative) Assessment and Plan (1) Leukocytosis Status: Acute Code(s): D72.829 - ELEVATED WHITE BLOOD CELL COUNT, UNSPECIFIED SNOMED Code(s): 695504608 (2) Allergy to multiple antibiotics Status: Acute Code(s): Z88.1 - SNOMED Code(s): 200114208 (3) Pneumonia Status: Acute Code(s): J18.9 - PNEUMONIA, UNSPECIFIED ORGANISM SNOMED Code(s): 869673180 Plan: 1patient presented to hospital with increasing shortness of breath and cough bringing up some yellow sputum in this patient with elevated white count and evidence of left lobe pneumonia likely community-acquired pneumonia. 2we will obtain sputum for Gram stain culture check a procalcitonin level urine for Legionella antigen. 3patient will be treated with Rocephin and Zithromax while waiting for the workup to be completed at the bedside questions and concerns were answered We will follow on clinical condition and cultures to further adjust medication if needed Thank you for this consultation we will follow the patient along with you Dictation was produced using [employer] dictation software. please excuse any grammatical, word or spelling errors. Time with Patient: Greater than 30
--- NOTE | 2023-10-18 06:21 | P.CNPUL ---
History of Present Illness Consult date: 10/18/23 Requesting physician: Anna Hastings Reason for consult: pneumonia Chief complaint: Persistent cough, weakness, fatigue History of present illness: Patient is an 83-year-old white male with past medical history significant for prostate cancer status post chemoradiation, non-Hodgkin's lymphoma, GERD, hyperlipidemia. Patient presented to emergency room yesterday morning complaining of increasing generalized weakness and fatigue. He feels like he wants to sleep all day. He also has been short of breath and had a persistent cough. The cough is occasionally productive with green sputum. Has had chills, but no documented fevers. Denies chest pain. The symptoms started on , and have progressively worsened. He denies any pre-existing pulmonary disease such as COPD or asthma. Negative for influenza, RSV, COVID on arrival. He is currently sitting up in bed, on 2 L/min nasal cannula, in no acute distress. Chest x-ray shows a left lower lobe infiltrate concerning for pneumonia. CBC on arrival shows some leukocytosis with a WBC count of 20.6. Procalcitonin was elevated at 1.73. He has been placed on empiric antibiotics in the form of azithromycin and Rocephin. CMP on arrival includes a sodium of 138, potassium 4.6, chloride 105, serum bicarb 19, BUN 26, creatinine 1.85, glucose 115. Saline infusing at 75 mL/h. Lactic acid level was 2.4 and is down to 1.4. LFTs not elevated. Troponin less than 0.012. Urinalysis not concerning for UTI. Currently afebrile. Appears nontoxic. Vital signs are stable. Review of Systems REVIEW OF SYSTEMS: CONSTITUTIONAL: Denies any recent significant weight loss or weight gain. EYES: Denies change in vision. EARS, NOSE, MOUTH, THROAT: Denies headaches, denies sore throat. CARDIOVASCULAR: Denies chest pain, palpitations or syncopal episodes. RESPIRATORY: See HPI. GASTROINTESTINAL: Denies change in appetite, abdominal pain, nausea and vomiting, or diarrhea GENITOURINARY: Denies hematuria, denies infections. MUSKULOSKELETAL: Denies pain, denies swelling. INTEGUMENTARY: Denies rash, denies eczema. NEUROLOGICAL: Denies recent memory loss, no recent seizure activity. PSYCHIATRIC: Denies anxiety, denies depression. HEMATOLOGIC/LYMPHATIC: Denies anemia, denies enlarged lymph node Past Medical History Past Medical History: Cancer, GERD/Reflux, Hyperlipidemia Additional Past Medical History / Comment(s): NON HODGKINS LYMPHOMA-. PROSTATE CANCER History of Any Multi-Drug Resistant Organisms: None Reported Past Surgical History: Prostate Surgery, Tonsillectomy Additional Past Surgical History / Comment(s): COLONOSCOPY Past Anesthesia/Blood Transfusion Reactions: No Reported Reaction Past Psychological History: No Psychological Hx Reported Smoking Status: Former smoker Past Alcohol Use History: Occasional Past Drug Use History: None Reported - Past Family History Sister(s) Family Medical History: Cancer Additional Family Medical History / Comment(s): 2 SISTERS- 1 WITH BREAST CA AND THE OTHER WITH COLON CA Medications and Allergies Home Medications Medication Instructions Recorded Confirmed Type Omeprazole 20 mg PO DAILY 01/08/16 10/17/23 History Empagliflozin [Jardiance] 10 mg PO DAILY 10/17/23 10/17/23 History Glucosamine/Chondr Romero A Sod [Osteo 1 tab PO DAILY 10/17/23 10/17/23 History Bi-Flex Caplet] Rosuvastatin [Crestor] 10 mg PO HS 10/17/23 10/17/23 History Vitamin C(Unknown Dose) 1 tab PO DAILY 10/17/23 10/17/23 History Vitamin D3(Unknown Dose) 1 tab PO DAILY 10/17/23 10/17/23 History allopurinoL 100 mg PO DAILY 10/17/23 10/17/23 History Allergies Allergy/AdvReac Type Severity Reaction Status Date / Time amoxicillin trihydrate AdvReac ITCHING Verified 10/17/23 15:40 [From Trimox] AND JOINT PAIN Sulfa (Sulfonamide AdvReac ITCHING Verified 10/17/23 15:40 Antibiotics) AND JOINT PAIN sulfamethoxazole AdvReac ITCHING Verified 10/17/23 15:40 [From Bactrim] AND JOINT PAIN trimethoprim [From Bactrim] AdvReac ITCHING Verified 10/17/23 15:40 AND JOINT PAIN Physical Exam Vitals: Vital Signs Temp Pulse Pulse Resp BP BP Pulse Ox 10/18/23 01:25 99.1 F 83 17 117/60 96 10/17/23 20:00 18 118/61 93 L 10/17/23 18:30 98.5 F 95 17 118/61 95 10/17/23 17:16 80 18 102/68 97 10/17/23 15:00 98 10/17/23 14:46 66 20 106/67 91 L 10/17/23 12:32 83 20 109/58 93 L 10/17/23 11:00 97.8 F 97 24 110/66 93 L Intake and Output 10/17/23 10/17/23 10/18/23 14:59 22:59 06:59 Output Total 375 Balance -375 Output: Urine 375 Other: Voiding Method Toilet Urinal # Voids 1 # Bowel Movements 1 Weight 78.925 kg 78.925 kg GENERAL EXAM: Alert, 83-year-old white male appearing stated age, comfortable in no apparent distress. HEAD: Normocephalic and atraumatic EYES: Normal reaction of pupils, equal size. NOSE: Clear with pink turbinates. THROAT: No erythema or exudates. NECK: No masses, no JVD. CHEST: No chest wall deformity. LUNGS: Equal air entry with no crackles, wheeze, rhonchi or dullness. On 2 L/min nasal cannula. No conversational dyspnea or accessory muscle use.. CVS: S1 and S2 normal with no audible murmur, regular rhythm. No extra heart sounds ABDOMEN: No hepatosplenomegaly, active bowel sounds, no guarding or rigidity. SPINE: No scoliosis or deformity SKIN: No rashes CENTRAL NERVOUS SYSTEM: No focal deficits, tone is normal in all 4 extremities. EXTREMITIES: There is no peripheral edema, clubbing, or cyanosis. Peripheral pulses are intact. Results - Laboratory Findings CBC and BMP: 10/17/23 11:14 10/17/23 11:14 PT/INR, D-dimer PT 11.5 sec (10.0-12.5) 10/17/23 11:14 INR 1.1 (<1.2) 10/17/23 11:14 Abnormal lab findings: Abnormal Labs 10/17/23 10/17/23 10/17/23 11:14 11:14 11:14 WBC 20.6 H MCV 101.5 H Neutrophils # 18.9 H Lymphocytes # 0.7 L Carbon Dioxide 19 L BUN 26 H Creatinine 1.85 H Glucose 115 H Plasma Lactic Acid Ricardo 2.4 H* Total Bilirubin 1.6 H Alkaline Phosphatase 129 H C-Reactive Protein Total Protein 6.2 L Procalcitonin Urine Protein Urine Glucose (UA) Urine Ketones 10/17/23 10/17/23 10/17/23 11:14 11:14 14:00 WBC MCV Neutrophils # Lymphocytes # Carbon Dioxide BUN Creatinine Glucose Plasma Lactic Acid Ricardo Total Bilirubin Alkaline Phosphatase C-Reactive Protein 31.2 H Total Protein Procalcitonin 1.73 H Urine Protein Trace H Urine Glucose (UA) 4+ H Urine Ketones 1+ H - Diagnostic Findings Chest x-ray: image reviewed Assessment and Plan Assessment: Left lower lobe community-acquired pneumonia Acute hypoxemic respiratory failure, secondary to above Acute leukocytosis Suspect acute on chronic kidney disease History of prostate cancer status post chemoradiation History of non-Hodgkin's lymphoma History of hyperlipidemia History of GERD without esophagitis Plan: Patient's medications, labs, chest x-ray reviewed Continue supplemental oxygen to maintain oxygen saturation 92% or greater Continue empiric antibiotics in the form of azithromycin and Rocephin Blood cultures are pending. Negative for influenza, RSV, COVID Procalcitonin elevated at 1.73 We will continue to follow I have personally seen and examined the patient, performed the documentation and the assessment and plan as written. Number of minutes spent on the visit: 20 Time with Patient: Greater than 30
[2023-10-18] MEDS: PANTOPRAZOLE 40 MG TABLET PO SCH (06:29)
--- NOTE | 2023-10-18 07:57 | P.PN ---
Subjective Progress Note Date: 10/18/23 HISTORY OF PRESENT ILLNESS: History of present illness; patient is a 83-year-old gentleman with past medical history significant for hyperlipidemia was brought to the ER for complaint of not feeling well for the last few days. Patient stated that he was all right till Wednesday when he started noticing that he was getting weak and feeling lethargic. Patient stated he felt as if he had no energy to do any activity. Patient is also noticing that he was getting chills and felt feverish, patient did not check his fever at home. Patient also complaining of cough is nonproductive. Complaining of shortness of breath on exertion as well. Denies any nausea, vomiting abdominal pain. There is no complaint of orthopnea or PND. Denies any chest pain. Over the last day his symptoms worsen and he felt very weak and decided come to the ER 10/18/2023: He was hospitalized in the afternoon yesterday for sepsis from left- sided pneumonia he is procalcitonin is high, lactic acidosis I, was hypoxic, slight bit symptomatic with elevated white blood cell positive chest x-ray. Was kept on IV antibiotic along with updraft treatment and O2 is feeling slightly better today had seen pulmonary will be seen infectious disease as well waiting for culture. REVIEW OF SYSTEMS: CONSTITUTIONAL: Well-developed mild respiratory distress EYES: No icterus sclerae, no conjunctivitis. EARS, NOSE, MOUTH, THROAT, and FACE: No sore throat, lymphadenopathy, carotid bruits or deformity. RESPIRATORY: Slight shortness of breath with cough and wheezes. CARDIOVASCULAR: Positive PND orthopnea palpitation. GASTROINTESTINAL: No Abd pain, Nausea or vomiting, no Diarrhea or constipation, No GI Bleed, no distention or masses. GENITOURINARY: Negative for Hematuria or UTI, no kidney stones. INTEGUMENT/BREAST: Negative for any muscular injury with mild osteoarthritis.. HEMATOLOGIC/LYMPHATIC: Negative for bleed or purpura. MUSCULOSKELTAL: Negative for Myalgia or arthralgia. NEURLOGICAL: No LOC, Sz or syncope, blurred vision dizziness or abnormality.. BEHAVIORAL/PSYCH: Negative. ENDOCRINE: Negative. PHYSICAL EXAMINATION: General Appearance: Alert, cooperative, in mild respiratory distress. Neck HEENT: Supple, no lymphadenopathy, no thyroid enlargement, no carotid bruits. Lungs: Decreased breath sound bilateral especially the bases worse on the left on the right side positive fine rhonchi with crackles positive expiratory wheezes. Chest Wall: Decreased expansion with deep inspiration no tenderness and no deformity was found on exam, no costochondral pain or discomfort. Heart: Regular rate and rhythm, S1, S2 normal, no murmur, rub or gallop. Back: Symmetric, no curvature, ROM normal, no CVA tenderness. Abdomen: Soft, non-tender, bowel sounds active all four quadrants, no masses, no organomegaly. Extremities: Extremities normal, atraumatic, no cyanosis or edema. Pulses: 2+ and symmetric. Skin: Skin color, texture, tugor normal, no rashes or lesions. Neurologic: Alert oriented x3 cranial nerves II through XII intact, no motor deficit, no abnormal balance or gait. ASSESSMENT AND PLAN: _Sepsis: Continue current IV antibiotics, waiting for culture, seen pulmonary and infectious disease. _Bacterial pneumonia: Mostly left basilar. Remain on Rocephin and azithromycin, consolidation on the chest x-ray, patient seen pulmonary. _Acute respiratory failure: Secondary to COPD and pneumonia will continue current antibiotic along with O2 and supportive care. _Mild COPD: Will continue patient on albuterol/ipratropium along with O2 and Pulmicort. _Acute kidney injury with chronic kidney disease: Continue gentle hydration repeat CMP with lab. _Hypertension: Watch blood pressure to keep systolic blood pressure below 130 use calcium channel christianne if needed. _History of non-Hodgkin lymphoma: No sign of recurrent lymphoma. _Hyperlipidemia: Has been on simvastatin we will continue medication. _BPH: No sign of obstruction watch for any urinary retention. _GI prophylaxis: On Protonix. _DVT prophylaxis: Lovenox 40 mg subcutaneous daily. CODE STATUS: Full code. Objective - Vital Signs Vital signs: Vital Signs Temp 99.1 F 10/18/23 01:25 Pulse 83 10/18/23 01:25 Resp 17 10/18/23 01:25 BP 117/60 10/18/23 01:25 Pulse Ox 96 10/18/23 01:25 FiO2 Intake & Output 10/17/23 10/17/23 10/18/23 06:59 18:59 06:59 Output Total 375 Balance -375 Weight 78.925 kg 78.925 kg Output: Urine 375 Other: Voiding Method Toilet Urinal # Voids 1 # Bowel Movements 1 - Labs CBC & Chem 7: 10/17/23 11:14 10/17/23 11:14 Labs: Abnormal Lab Results - Last 24 Hours (Table) 10/17/23 10/17/23 10/17/23 Range/Units 11:14 11:14 11:14 WBC 20.6 H (3.8-10.6) k/uL MCV 101.5 H (80.0-100.0) fL Neutrophils # 18.9 H (1.3-7.7) k/uL Lymphocytes # 0.7 L (1.0-4.8) k/uL Carbon Dioxide 19 L (22-30) mmol/L BUN 26 H (9-20) mg/dL Creatinine 1.85 H (0.66-1.25) mg/dL Glucose 115 H (74-99) mg/dL Plasma Lactic Acid Ricardo 2.4 H* (0.7-2.0) mmol/L Total Bilirubin 1.6 H (0.2-1.3) mg/dL Alkaline Phosphatase 129 H (38-126) U/L C-Reactive Protein (<1.0) mg/dL Total Protein 6.2 L (6.3-8.2) g/dL Procalcitonin (0.02-0.09) ng/mL Urine Protein (Negative) Urine Glucose (UA) (Negative) Urine Ketones (Negative) 10/17/23 10/17/23 10/17/23 Range/Units 11:14 11:14 14:00 WBC (3.8-10.6) k/uL MCV (80.0-100.0) fL Neutrophils # (1.3-7.7) k/uL Lymphocytes # (1.0-4.8) k/uL Carbon Dioxide (22-30) mmol/L BUN (9-20) mg/dL Creatinine (0.66-1.25) mg/dL Glucose (74-99) mg/dL Plasma Lactic Acid Ricardo (0.7-2.0) mmol/L Total Bilirubin (0.2-1.3) mg/dL Alkaline Phosphatase (38-126) U/L C-Reactive Protein 31.2 H (<1.0) mg/dL Total Protein (6.3-8.2) g/dL Procalcitonin 1.73 H (0.02-0.09) ng/mL Urine Protein Trace H (Negative) Urine Glucose (UA) 4+ H (Negative) Urine Ketones 1+ H (Negative)
[2023-10-18] MEDS ORDERED: PANTOPRAZOLE 40 MG/10 ML VIAL IV SCH (09:00)
[2023-10-18] MEDS ORDERED: NON FORMULARY DRUG (Glucosamine/Chondr Su A Sod [Osteo Bi-Flex Caplet] 1 EACH Tablet) PO SCH (09:00)
[2023-10-18] MEDS: allopurinoL 100 MG TAB PO SCH (09:12)
[2023-10-18] MEDS: ASCORBIC ACID 500 MG TAB PO SCH (09:12)
[2023-10-18] MEDS: CHOLECALCIFEROL 25 MCG (1000 IU) TABLET PO SCH (09:12)
[2023-10-18] MEDS: AZITHROMYCIN 500 MG TAB PO SCH (10:13)
[2023-10-18] MEDS: DAPAGLIFLOZIN PROPANEDIOL 5 MG TABLET PO SCH (10:13)
--- NOTE | 2023-10-18 14:40 | P.PN ---
Subjective Progress Note Date: 10/18/23 Principal diagnosis: Reason for follow-up is pneumonia Patient is a 83-year-old male with a past medical history significant for reflux hyperlipidemia , non-Hodgkin lymphoma and prostate cancer patient was brought into the hospital for evaluation of increasing shortness of breath and weakness, patient be diagnosed with a left lower lobe pneumonia. On today's evaluation that is 10/18/2023, patient has been afebrile, patient is breathing comfortably and is currently on room air, patient denies having any chest pain cough has decreased in intensity no nausea vomiting no abdominal pain and no diarrhea. Patient did have a lactic acid of 1.4 no CBC was done today urine for Legionella antigen is negative cultures are currently pending Objective - Vital Signs Vital signs: Vital Signs Temp 98.5 F 10/18/23 07:15 Pulse 77 10/18/23 07:15 Resp 17 10/18/23 07:15 BP 111/66 10/18/23 07:15 Pulse Ox 98 10/18/23 07:15 FiO2 Intake & Output 10/17/23 10/18/23 10/18/23 18:59 06:59 18:59 Output Total 375 Balance -375 Weight 78.925 kg 78.925 kg Output: Urine 375 Other: Voiding Method Toilet Urinal # Voids 1 # Bowel Movements 1 - Exam GENERAL DESCRIPTION: An elderly male l up in the chair in no distress RESPIRATORY SYSTEM: Unlabored breathing , coarse crackles at the left base HEART: S1 S2 regular rate and rhythm , ABDOMEN: Soft , no tenderness EXTREMITIES: No edema feet - Labs CBC & Chem 7: 10/17/23 11:14 10/17/23 11:14 Labs: Abnormal Lab Results - Last 24 Hours (Table) 10/17/23 10/17/23 10/17/23 Range/Units 11:14 11:14 11:14 Carbon Dioxide 19 L (22-30) mmol/L BUN 26 H (9-20) mg/dL Creatinine 1.85 H (0.66-1.25) mg/dL Glucose 115 H (74-99) mg/dL Plasma Lactic Acid Ricardo 2.4 H* (0.7-2.0) mmol/L Total Bilirubin 1.6 H (0.2-1.3) mg/dL Alkaline Phosphatase 129 H (38-126) U/L C-Reactive Protein 31.2 H (<1.0) mg/dL Total Protein 6.2 L (6.3-8.2) g/dL Procalcitonin (0.02-0.09) ng/mL Urine Protein (Negative) Urine Glucose (UA) (Negative) Urine Ketones (Negative) 10/17/23 10/17/23 Range/Units 11:14 14:00 Carbon Dioxide (22-30) mmol/L BUN (9-20) mg/dL Creatinine (0.66-1.25) mg/dL Glucose (74-99) mg/dL Plasma Lactic Acid Ricardo (0.7-2.0) mmol/L Total Bilirubin (0.2-1.3) mg/dL Alkaline Phosphatase (38-126) U/L C-Reactive Protein (<1.0) mg/dL Total Protein (6.3-8.2) g/dL Procalcitonin 1.73 H (0.02-0.09) ng/mL Urine Protein Trace H (Negative) Urine Glucose (UA) 4+ H (Negative) Urine Ketones 1+ H (Negative) Assessment and Plan (1) Allergy to multiple antibiotics Current Visit: Yes Status: Acute Code(s): Z88.1 - ALLERGY STATUS TO OTHER ANTIBIOTIC AGENTS SNOMED Code(s): 704393253 (2) Pneumonia Current Visit: Yes Status: Acute Code(s): J18.9 - PNEUMONIA, UNSPECIFIED ORGANISM SNOMED Code(s): 828940183 Plan: 1patient presented to hospital with increasing shortness of breath and cough bringing up some yellow sputum in this patient with elevated white count and evidence of left lobe pneumonia likely community-acquired pneumonia. 2 procalcitonin level of 1.73, urine for Legionella antigen is negative. Sputum cultures pending 3patient seem to have shown some improvement clinically and will continue Rocephin and Zithromax while waiting for the culture to finalize Dictation was produced using [employer] dictation software. please excuse any grammatical, word or spelling errors.
--- NOTE | 2023-10-18 19:16 | P.CNPUL ---
History of Present Illness Consult date: 10/18/23 Reason for consult: dyspnea History of present illness: Patient is an 83-year-old white male with past medical history significant for prostate cancer status post chemoradiation, non-Hodgkin's lymphoma, GERD, hyperlipidemia. Patient presented to emergency room yesterday morning complaining of increasing generalized weakness and fatigue. He feels like he wants to sleep all day. He also has been short of breath and had a persistent cough. The cough is occasionally productive with green sputum. Has had chills, but no documented fevers. Denies chest pain. The symptoms started on , and have progressively worsened. He denies any pre-existing pulmonary disease such as COPD or asthma. Negative for influenza, RSV, COVID on arrival. He is currently sitting up in bed, on 2 L/min nasal cannula, in no acute distress. Chest x-ray shows a left lower lobe infiltrate concerning for pneumonia. CBC on arrival shows some leukocytosis with a WBC count of 20.6. Procalcitonin was elevated at 1.73. He has been placed on empiric antibiotics in the form of azithromycin and Rocephin. CMP on arrival includes a sodium of 138, potassium 4.6, chloride 105, serum bicarb 19, BUN 26, creatinine 1.85, glucose 115. Saline infusing at 75 mL/h. Lactic acid level was 2.4 and is down to 1.4. LFTs not elevated. Troponin less than 0.012. Urinalysis not concerning for UTI. Currently afebrile. Appears nontoxic. Vital signs are stable.. The patient is currentlyOn today's evaluation on 10/18/2023, on 2 L of oxygen by nasal cannula. He continues to have some limited cough. His procalcitonin level was elevated at 1.7. The rest of the viral screen was negative. White cell count was elevated at 20.6. The patient is currently on combination of Rocephin and Zithromax. He remains on 2 L of O2 nasal cannula. No history of travel. No history of any sick contacts. Review of Systems CONSTITUTIONAL: Denies any recent significant weight loss or weight gain. EYES: Denies change in vision. EARS, NOSE, MOUTH, THROAT: Denies headaches, denies sore throat. CARDIOVASCULAR: Denies chest pain, palpitations or syncopal episodes. RESPIRATORY: See HPI. GASTROINTESTINAL: Denies change in appetite, abdominal pain, nausea and vomiting, or diarrhea GENITOURINARY: Denies hematuria, denies infections. MUSKULOSKELETAL: Denies pain, denies swelling. INTEGUMENTARY: Denies rash, denies eczema. NEUROLOGICAL: Denies recent memory loss, no recent seizure activity. PSYCHIATRIC: Denies anxiety, denies depression. HEMATOLOGIC/LYMPHATIC: Denies anemia, denies enlarged lymph node Past Medical History Past Medical History: Cancer, GERD/Reflux, Hyperlipidemia Additional Past Medical History / Comment(s): NON HODGKINS LYMPHOMA-. PROSTATE CANCER History of Any Multi-Drug Resistant Organisms: None Reported Past Surgical History: Prostate Surgery, Tonsillectomy Additional Past Surgical History / Comment(s): COLONOSCOPY Past Anesthesia/Blood Transfusion Reactions: No Reported Reaction Past Psychological History: No Psychological Hx Reported Smoking Status: Former smoker Past Alcohol Use History: Occasional Past Drug Use History: None Reported - Past Family History Sister(s) Family Medical History: Cancer Additional Family Medical History / Comment(s): 2 SISTERS- 1 WITH BREAST CA AND THE OTHER WITH COLON CA Medications and Allergies Home Medications Medication Instructions Recorded Confirmed Type Omeprazole 20 mg PO DAILY 01/08/16 10/17/23 History Empagliflozin [Jardiance] 10 mg PO DAILY 10/17/23 10/17/23 History Glucosamine/Chondr Romero A Sod [Osteo 1 tab PO DAILY 10/17/23 10/17/23 History Bi-Flex Caplet] Rosuvastatin [Crestor] 10 mg PO HS 10/17/23 10/17/23 History Vitamin C(Unknown Dose) 1 tab PO DAILY 10/17/23 10/17/23 History Vitamin D3(Unknown Dose) 1 tab PO DAILY 10/17/23 10/17/23 History allopurinoL 100 mg PO DAILY 10/17/23 10/17/23 History Allergies Allergy/AdvReac Type Severity Reaction Status Date / Time amoxicillin trihydrate AdvReac ITCHING Verified 10/17/23 15:40 [From Trimox] AND JOINT PAIN Sulfa (Sulfonamide AdvReac ITCHING Verified 10/17/23 15:40 Antibiotics) AND JOINT PAIN sulfamethoxazole AdvReac ITCHING Verified 10/17/23 15:40 [From Bactrim] AND JOINT PAIN trimethoprim [From Bactrim] AdvReac ITCHING Verified 10/17/23 15:40 AND JOINT PAIN Physical Exam Vitals: Vital Signs Temp Pulse Resp BP Pulse Ox 10/18/23 13:15 98.6 F 72 19 95/57 99 10/18/23 07:15 98.5 F 77 17 111/66 98 10/18/23 01:25 99.1 F 83 17 117/60 96 10/17/23 20:00 18 118/61 93 L Intake and Output 10/18/23 10/18/23 10/18/23 06:59 14:59 22:59 Output Total 375 Balance -375 Output: Urine 375 Other: # Voids 3 GENERAL EXAM: Alert, 83-year-old white male appearing stated age, comfortable in no apparent distress. HEAD: Normocephalic and atraumatic EYES: Normal reaction of pupils, equal size. NOSE: Clear with pink turbinates. THROAT: No erythema or exudates. NECK: No masses, no JVD. CHEST: No chest wall deformity. LUNGS: Equal air entry with no crackles, wheeze, rhonchi or dullness. On 2 L/min nasal cannula. No conversational dyspnea or accessory muscle use.. CVS: S1 and S2 normal with no audible murmur, regular rhythm. No extra heart sounds ABDOMEN: No hepatosplenomegaly, active bowel sounds, no guarding or rigidity. SPINE: No scoliosis or deformity SKIN: No rashes CENTRAL NERVOUS SYSTEM: No focal deficits, tone is normal in all 4 extremities. EXTREMITIES: There is no peripheral edema, clubbing, or cyanosis. Peripheral pulses are intact. Results - Laboratory Findings CBC and BMP: 10/17/23 11:14 10/17/23 11:14 PT/INR, D-dimer PT 11.5 sec (10.0-12.5) 10/17/23 11:14 INR 1.1 (<1.2) 10/17/23 11:14 Abnormal lab findings: Abnormal Labs 10/17/23 10/17/23 10/17/23 11:14 11:14 11:14 WBC 20.6 H MCV 101.5 H Neutrophils # 18.9 H Lymphocytes # 0.7 L Carbon Dioxide 19 L BUN 26 H Creatinine 1.85 H Glucose 115 H Plasma Lactic Acid Ricardo 2.4 H* Total Bilirubin 1.6 H Alkaline Phosphatase 129 H C-Reactive Protein Total Protein 6.2 L Procalcitonin Urine Protein Urine Glucose (UA) Urine Ketones 10/17/23 10/17/23 10/17/23 11:14 11:14 14:00 WBC MCV Neutrophils # Lymphocytes # Carbon Dioxide BUN Creatinine Glucose Plasma Lactic Acid Ricardo Total Bilirubin Alkaline Phosphatase C-Reactive Protein 31.2 H Total Protein Procalcitonin 1.73 H Urine Protein Trace H Urine Glucose (UA) 4+ H Urine Ketones 1+ H Assessment and Plan Plan: Left lower lobe community-acquired pneumonia, most likely bacterial pneumonia with elevated procalcitonin level. The patient also has some leukocytosis. The patient is currently being treated for community-acquired pneumonia with a combination Rocephin and Zithromax. Acute hypoxemic respiratory failure, secondary to above, currently on 2 L of oxygen by nasal cannula Acute leukocytosis, secondary to above Chronic stage III kidney disease History of prostate cancer status post chemoradiation History of non-Hodgkin's lymphoma History of hyperlipidemia History of GERD without esophagitis Plan: Continue supplemental oxygen to maintain oxygen saturation 92% or greater Continue empiric antibiotics in the form of azithromycin and Rocephin Blood cultures are pending. Negative for influenza, RSV, COVID Procalcitonin elevated at 1.73 Repeat chest x-ray within the next 24 hours We will continue to follow
--- NOTE | 2023-10-19 10:37 | XR ---
EXAMINATION TYPE: XR chest 2V DATE OF EXAM: 10/19/2023 10:28 AM CLINICAL INDICATION:Male, 83 years old with history of Pneumonia; [facility] COMPARISON: Chest radiographs from 10/17/2023. TECHNIQUE: XR chest 2V Frontal and lateral views of the chest. FINDINGS: Lungs/Pleura: Similar left basilar airspace opacities. No evidence of pneumothorax or pleural effusio n. Pulmonary vascularity: Unremarkable. Heart/mediastinum: Cardiomediastinal silhouette is unremarkable. Musculoskeletal: No acute osseous pathology. IMPRESSION: Similar left basilar airspace opacities.
--- NOTE | 2023-10-19 14:33 | P.PN ---
Subjective Progress Note Date: 10/19/23 Patient is an 83-year-old white male with past medical history significant for prostate cancer status post chemoradiation, non-Hodgkin's lymphoma, GERD, hyperlipidemia. Patient presented to emergency room yesterday morning complaining of increasing generalized weakness and fatigue. He feels like he wants to sleep all day. He also has been short of breath and had a persistent cough. The cough is occasionally productive with green sputum. Has had chills, but no documented fevers. Denies chest pain. The symptoms started on , and have progressively worsened. He denies any pre-existing pulmonary disease such as COPD or asthma. Negative for influenza, RSV, COVID on arrival. He is currently sitting up in bed, on 2 L/min nasal cannula, in no acute distress. Chest x-ray shows a left lower lobe infiltrate concerning for pneumonia. CBC on arrival shows some leukocytosis with a WBC count of 20.6. Procalcitonin was elevated at 1.73. He has been placed on empiric antibiotics in the form of azithromycin and Rocephin. CMP on arrival includes a sodium of 138, potassium 4.6, chloride 105, serum bicarb 19, BUN 26, creatinine 1.85, glucose 115. Saline infusing at 75 mL/h. Lactic acid level was 2.4 and is down to 1.4. LFTs not elevated. Troponin less than 0.012. Urinalysis not concerning for UTI. Currently afebrile. Appears nontoxic. Vital signs are stable.. The patient is currentlyOn today's evaluation on 10/18/2023, on 2 L of oxygen by nasal cannula. He continues to have some limited cough. His procalcitonin level was elevated at 1.7. The rest of the viral screen was negative. White cell count was elevated at 20.6. The patient is currently on combination of Rocephin and Zithromax. He remains on 2 L of O2 nasal cannula. No history of travel. No history of any sick contacts. On today's evaluation of 10/19/2023, the patient is being seen for a follow-up. The patient is feeling better compared to yesterday. Hemodynamically stable. Awaiting labs from today to follow-up on his white cell count. Meanwhile, the patient underwent a follow-up chest x-ray this morning that showed a similar left basilar pulmonary opacity. The patient remains on Rocephin and Zithromax will be also continued. He remains on IV fluids at 75 cc an hour normal saline. Oxygenation is improved and the patient's pulse ox on room air oxygen is in the order of 91%. No other significant events overnight. Objective - Vital Signs Vital signs: Vital Signs Temp 98.6 F 10/19/23 07:10 Pulse 72 10/19/23 07:10 Resp 18 10/19/23 07:10 BP 116/66 10/19/23 07:10 Pulse Ox 90 L 10/19/23 07:10 FiO2 Intake & Output 10/18/23 10/19/23 10/19/23 18:59 06:59 18:59 Output Total 300 Balance -300 Output: Urine 300 Other: Voiding Method Toilet Urinal # Voids 3 1 - Exam GENERAL EXAM: Alert, 83-year-old white male appearing stated age, comfortable in no apparent distress. HEAD: Normocephalic and atraumatic EYES: Normal reaction of pupils, equal size. NOSE: Clear with pink turbinates. THROAT: No erythema or exudates. NECK: No masses, no JVD. CHEST: No chest wall deformity. LUNGS: Equal air entry with no crackles, wheeze, rhonchi or dullness. On 2 L/min nasal cannula. No conversational dyspnea or accessory muscle use.. CVS: S1 and S2 normal with no audible murmur, regular rhythm. No extra heart sounds ABDOMEN: No hepatosplenomegaly, active bowel sounds, no guarding or rigidity. SPINE: No scoliosis or deformity SKIN: No rashes CENTRAL NERVOUS SYSTEM: No focal deficits, tone is normal in all 4 extremities. EXTREMITIES: There is no peripheral edema, clubbing, or cyanosis. Peripheral pulses are intact. - Labs CBC & Chem 7: 10/17/23 11:14 10/17/23 11:14 Labs: Microbiology - Last 24 Hours (Table) 10/17/23 13:48 Blood Culture - Preliminary Blood 10/17/23 13:23 Blood Culture - Preliminary Blood Assessment and Plan Plan: Left lower lobe community-acquired pneumonia, most likely bacterial pneumonia with elevated procalcitonin level. The patient also has some leukocytosis. The patient is currently being treated for community-acquired pneumonia with a combination Rocephin and Zithromax. Acute hypoxemic respiratory failure, secondary to above, currently on 2 L of ox ygen by nasal cannula Acute leukocytosis, secondary to above Chronic stage III kidney disease History of prostate cancer status post chemoradiation History of non-Hodgkin's lymphoma History of hyperlipidemia History of GERD without esophagitis Plan: Chest x-ray shows stable left lower lobe pulmonary filtration Continue supplemental oxygen to maintain oxygen saturation 92% or greater, wean down to oxygen at room air Continue empiric antibiotics in the form of azithromycin and Rocephin Blood cultures are pending. Negative for influenza, RSV, COVID Procalcitonin elevated at 1.73 Awaiting follow-up white cell count from today Repeat chest x-ray within the next 24 hours We will continue to follow
--- NOTE | 2023-10-19 15:06 | P.PN ---
Subjective Progress Note Date: 10/19/23 Principal diagnosis: Reason for follow-up is pneumonia Patient is a 83-year-old male with a past medical history significant for reflux hyperlipidemia , non-Hodgkin lymphoma and prostate cancer patient was brought into the hospital for evaluation of increasing shortness of breath and weakness, patient be diagnosed with a left lower lobe pneumonia. On today's evaluation that is 10/19/2023,the patient denies any fever or any chills, patient is breathing comfortably on room air, the patient denies chest pain shortness of breath cough is decreased in intensity mostly dry in nature denies any nausea no vomiting no abdominal pain no diarrhea still complaining of weakness. No new labs has been repeated today blood cultures are pending chest x-ray from this morning left basilar airspace disease Objective - Vital Signs Vital signs: Vital Signs Temp 98.6 F 10/19/23 07:10 Pulse 72 10/19/23 07:10 Resp 18 10/19/23 07:10 BP 116/66 10/19/23 07:10 Pulse Ox 90 L 10/19/23 07:10 FiO2 Intake & Output 10/18/23 10/19/23 10/19/23 18:59 06:59 18:59 Output Total 300 Balance -300 Output: Urine 300 Other: Voiding Method Toilet Urinal # Voids 3 1 - Exam GENERAL DESCRIPTION: An elderly male l up in the chair in no distress RESPIRATORY SYSTEM: Unlabored breathing , coarse crackles at the left base HEART: S1 S2 regular rate and rhythm , ABDOMEN: Soft , no tenderness EXTREMITIES: No edema feet - Labs CBC & Chem 7: 10/17/23 11:14 10/17/23 11:14 Labs: Microbiology - Last 24 Hours (Table) 10/17/23 13:48 Blood Culture - Preliminary Blood 10/17/23 13:23 Blood Culture - Preliminary Blood Assessment and Plan (1) Allergy to multiple antibiotics Current Visit: Yes Status: Acute Code(s): Z88.1 - ALLERGY STATUS TO OTHER ANTIBIOTIC AGENTS SNOMED Code(s): 763960260 (2) Pneumonia Current Visit: Yes Status: Acute Code(s): J18.9 - PNEUMONIA, UNSPECIFIED ORGANISM SNOMED Code(s): 839740897 Plan: 1patient presented to hospital with increasing shortness of breath and cough bringing up some yellow sputum in this patient with elevated white count and evidence of left lobe pneumonia likely community-acquired pneumonia. 2 procalcitonin level of 1.73, urine for Legionella antigen is negative. Sputum cultures pending 3patient is afebrile still complaining of weakness some improvement respiratory symptoms, patient will be treated with Rocephin and Zithromax while waiting for the culture to finalize Dictation was produced using [employer] dictation software. please excuse any grammatical, word or spelling errors. Time with Patient: Less than 30
--- NOTE | 2023-10-20 05:42 | P.PN ---
Subjective Progress Note Date: 10/19/23 HISTORY OF PRESENT ILLNESS: History of present illness; patient is a 83-year-old gentleman with past medical history significant for hyperlipidemia was brought to the ER for complaint of not feeling well for the last few days. Patient stated that he was all right till Wednesday when he started noticing that he was getting weak and feeling lethargic. Patient stated he felt as if he had no energy to do any activity. Patient is also noticing that he was getting chills and felt feverish, patient did not check his fever at home. Patient also complaining of cough is nonproductive. Complaining of shortness of breath on exertion as well. Denies any nausea, vomiting abdominal pain. There is no complaint of orthopnea or PND. Denies any chest pain. Over the last day his symptoms worsen and he felt very weak and decided come to the ER 10/18/2023: He was hospitalized in the afternoon yesterday for sepsis from left- sided pneumonia he is procalcitonin is high, lactic acidosis I, was hypoxic, slight bit symptomatic with elevated white blood cell positive chest x-ray. Was kept on IV antibiotic along with updraft treatment and O2 is feeling slightly better today had seen pulmonary will be seen infectious disease as well waiting for culture. 10/19/2023: Will continue to feel better and improved, oxygen level is much better is remain on Rocephin and azithromycin and his pulse ox is 91% on room air continue to drop down through the night. Patient hopefully would not require any oxygen at home when he is discharged. Will continue for an extra day of IV antibiotic till tomorrow switch patient to oral hopefully prepare for going home. Repeat chest x-ray to see the progression on the chest x-ray if there is any decline compared to before. REVIEW OF SYSTEMS: CONSTITUTIONAL: Well-developed mild respiratory distress EYES: No icterus sclerae, no conjunctivitis. EARS, NOSE, MOUTH, THROAT, and FACE: No sore throat, lymphadenopathy, carotid bruits or deformity. RESPIRATORY: Slight shortness of breath with cough and wheezes. CARDIOVASCULAR: Positive PND orthopnea palpitation. GASTROINTESTINAL: No Abd pain, Nausea or vomiting, no Diarrhea or constipation, No GI Bleed, no distention or masses. GENITOURINARY: Negative for Hematuria or UTI, no kidney stones. INTEGUMENT/BREAST: Negative for any muscular injury with mild osteoarthritis.. HEMATOLOGIC/LYMPHATIC: Negative for bleed or purpura. MUSCULOSKELTAL: Negative for Myalgia or arthralgia. NEURLOGICAL: No LOC, Sz or syncope, blurred vision dizziness or abnormality.. BEHAVIORAL/PSYCH: Negative. ENDOCRINE: Negative. PHYSICAL EXAMINATION: General Appearance: Alert, cooperative, in mild respiratory distress. Neck HEENT: Supple, no lymphadenopathy, no thyroid enlargement, no carotid bruits. Lungs: Decreased breath sound bilateral especially the bases worse on the left on the right side positive fine rhonchi with crackles positive expiratory wheezes. Chest Wall: Decreased expansion with deep inspiration no tenderness and no deformity was found on exam, no costochondral pain or discomfort. Heart: Regular rate and rhythm, S1, S2 normal, no murmur, rub or gallop. Back: Symmetric, no curvature, ROM normal, no CVA tenderness. Abdomen: Soft, non-tender, bowel sounds active all four quadrants, no masses, no organomegaly. Extremities: Extremities normal, atraumatic, no cyanosis or edema. Pulses: 2+ and symmetric. Skin: Skin color, texture, tugor normal, no rashes or lesions. Neurologic: Alert oriented x3 cranial nerves II through XII intact, no motor deficit, no abnormal balance or gait. ASSESSMENT AND PLAN: _Sepsis: Continue current IV antibiotics, waiting for culture, still on IV antibiotics seen pulmonary and ID. CBC to be done again tomorrow morning. _Bacterial pneumonia: Mostly left basilar. Remain on Rocephin and azithromycin, chest x-ray slightly better patient continued to be hypoxic we will switch probably to oral antibiotic by tomorrow. _Acute respiratory failure: Secondary to COPD and pneumonia will continue current antibiotic along with O2 and supportive care. _Mild COPD: Will continue patient on albuterol/ipratropium along with O2 and Pulmicort. _Acute kidney injury with chronic kidney disease: Continue gentle hydration repeat CMP with lab. _Hypertension: Blood pressures under better control at this point. _History of non-Hodgkin lymphoma: No sign of recurrent lymphoma. _Hyperlipidemia: Has been on simvastatin we will continue medication. _BPH: No sign of obstruction watch for any urinary retention. Prognosis: Good. Discharge planning: Repeat CBC chest x-ray continue IV antibiotic for 24 more hours patient is doing well and hemodynamically stable does not require any oxygen hopefully will be able to be discharged tomorrow. Objective - Vital Signs Vital signs: Vital Signs Temp 98.2 F 10/19/23 01:35 Pulse 80 10/19/23 01:35 Resp 17 10/19/23 01:35 BP 95/58 10/19/23 01:35 Pulse Ox 91 L 10/19/23 01:35 FiO2 Intake & Output 10/18/23 10/18/23 10/19/23 06:59 18:59 06:59 Output Total 375 300 Balance -375 -300 Weight 78.925 kg Output: Urine 375 300 Other: Voiding Method Toilet Toilet Urinal Urinal # Voids 3 1 - Labs CBC & Chem 7: 10/17/23 11:14 10/17/23 11:14 Labs: Microbiology - Last 24 Hours (Table) 10/17/23 13:48 Blood Culture - Preliminary Blood 10/17/23 13:23 Blood Culture - Preliminary Blood
[2023-10-20 08:02] VITALS: BP 119/81; PULSE 78; RESP 18; TEMP 98.6
[2023-10-20 08:45] LABS: HCT 34.3 % (39.6-50.0); HGB 11.3 g/dL (13.0-17.0); MCH 32.8 pg (27.0-32.0); MCHC 32.9 g/dL (32.0-37.0); MCV 99.4 FL (80.0-97.0); Mean Platelet Volume 11.8 FL (9.5-12.2); NRBC Per 100 WBC 0 X 10*3/uL (0.00-0.01); Platelet Count 175 X 10*3/uL (140-440); RBC 3.45 X 10*6/uL (4.40-5.60); RDW 13.4 % (11.5-14.5); WBC 10.52 X 10*3/uL (4.50-10.00)
[2023-10-20 08:54] LABS: ALT 60 U/L (10-49); AST 77 U/L (14-35); Albumin 3.1 g/dL (3.8-4.9); Albumin/Globulin Ratio 1.63 Ratio (1.60-3.17); Alkaline Phosphatase 104 U/L (41-126); BUN/Creat Ratio 13.69 Ratio (12.00-20.00); Blood Urea Nitrogen 21.9 mg/dL (9.0-27.0); Calcium 8.6 mg/dL (8.7-10.3); Chloride 104 mmol/L (96-109); Globulin 1.9 g/dL (1.6-3.3); Glucose 132 mg/dL (70-110); Sodium 138 mmol/L (135-145); Total Bilirubin 0.3 mg/dL (0.3-1.2)
[2023-10-20] MEDS: AZITHROMYCIN 500 MG TAB PO SCH (09:02)
--- NOTE | 2023-10-20 12:06 | P.PN ---
Subjective Progress Note Date: 10/20/23 Patient is an 83-year-old white male with past medical history significant for prostate cancer status post chemoradiation, non-Hodgkin's lymphoma, GERD, hyperlipidemia. Patient presented to emergency room yesterday morning complaining of increasing generalized weakness and fatigue. He feels like he wants to sleep all day. He also has been short of breath and had a persistent cough. The cough is occasionally productive with green sputum. Has had chills, but no documented fevers. Denies chest pain. The symptoms started on , and have progressively worsened. He denies any pre-existing pulmonary disease such as COPD or asthma. Negative for influenza, RSV, COVID on arrival. He is currently sitting up in bed, on 2 L/min nasal cannula, in no acute distress. Chest x-ray shows a left lower lobe infiltrate concerning for pneumonia. CBC on arrival shows some leukocytosis with a WBC count of 20.6. Procalcitonin was elevated at 1.73. He has been placed on empiric antibiotics in the form of azithromycin and Rocephin. CMP on arrival includes a sodium of 138, potassium 4.6, chloride 105, serum bicarb 19, BUN 26, creatinine 1.85, glucose 115. Saline infusing at 75 mL/h. Lactic acid level was 2.4 and is down to 1.4. LFTs not elevated. Troponin less than 0.012. Urinalysis not concerning for UTI. Currently afebrile. Appears nontoxic. Vital signs are stable.. The patient is currentlyOn today's evaluation on 10/18/2023, on 2 L of oxygen by nasal cannula. He continues to have some limited cough. His procalcitonin level was elevated at 1.7. The rest of the viral screen was negative. White cell count was elevated at 20.6. The patient is currently on combination of Rocephin and Zithromax. He remains on 2 L of O2 nasal cannula. No history of travel. No history of any sick contacts. On today's evaluation of 10/19/2023, the patient is being seen for a follow-up. The patient is feeling better compared to yesterday. Hemodynamically stable. Awaiting labs from today to follow-up on his white cell count. Meanwhile, the patient underwent a follow-up chest x-ray this morning that showed a similar left basilar pulmonary opacity. The patient remains on Rocephin and Zithromax will be also continued. He remains on IV fluids at 75 cc an hour normal saline. Oxygenation is improved and the patient's pulse ox on room air oxygen is in the order of 91%. No other significant events overnight. On today's evaluation of 10/20/2023, the patient is doing well. No specific complaints. Repeat chest x-ray was done yesterday and the patient was found to have some original infiltration of the left lung base. Clinically however she is improved. He is having some minimal residual cough. White cell count is down to 10.5 with a hemoglobin of 11.3, BUN is at 21 with a creatinine of 1.6 which is essentially stable, slightly improved compared to his admission. Sodiu m levels at 138. Cultures have been all negative including the blood cultures. Remains on Rocephin and Zithromax. Pulse ox is ranging between 90 to 92% on room air oxygen. Otherwise, no other significant events. He is ambulating. Objective - Vital Signs Vital signs: Vital Signs Temp 98.6 F 10/20/23 07:41 Pulse 78 10/20/23 07:41 Resp 18 10/20/23 07:41 BP 119/81 10/20/23 07:41 Pulse Ox 92 L 10/20/23 07:41 FiO2 Intake & Output 10/19/23 10/20/23 10/20/23 18:59 06:59 18:59 Other: Voiding Method Toilet Urinal # Voids 2 4 - Exam GENERAL EXAM: Alert, 83-year-old white male appearing stated age, comfortable in no apparent distress. The patient is currently on room air oxygen. HEAD: Normocephalic and atraumatic EYES: Normal reaction of pupils, equal size. NOSE: Clear with pink turbinates. THROAT: No erythema or exudates. NECK: No masses, no JVD. CHEST: No chest wall deformity. LUNGS: Equal air entry with no crackles, wheeze, rhonchi or dullness. No conversational dyspnea or accessory muscle use.. CVS: S1 and S2 normal with no audible murmur, regular rhythm. No extra heart sounds ABDOMEN: No hepatosplenomegaly, active bowel sounds, no guarding or rigidity. SPINE: No scoliosis or deformity SKIN: No rashes CENTRAL NERVOUS SYSTEM: No focal deficits, tone is normal in all 4 extremities. EXTREMITIES: There is no peripheral edema, clubbing, or cyanosis. Peripheral pulses are intact. - Labs CBC & Chem 7: 10/20/23 04:30 10/20/23 04:30 Labs: Abnormal Lab Results - Last 24 Hours (Table) 10/20/23 10/20/23 Range/Units 04:30 04:30 WBC 10.52 H (4.50-10.00) X 10*3/uL RBC 3.45 L (4.40-5.60) X 10*6/uL Hgb 11.3 L (13.0-17.0) g/dL Hct 34.3 L (39.6-50.0) % MCV 99.4 H (80.0-97.0) FL MCH 32.8 H (27.0-32.0) pg Creatinine 1.6 H (0.6-1.5) mg/dL Est GFR (CKD-EPI) 42 L (>=60) Glucose 132 H (70-110) mg/dL Calcium 8.6 L (8.7-10.3) mg/dL AST 77 H (14-35) U/L ALT 60 H (10-49) U/L Total Protein 5.0 L (6.2-8.2) g/dL Albumin 3.1 L (3.8-4.9) g/dL Microbiology - Last 24 Hours (Table) 10/17/23 13:48 Blood Culture - Preliminary Blood 10/17/23 13:23 Blood Culture - Preliminary Blood Assessment and Plan Plan: Left lower lobe community-acquired pneumonia, most likely bacterial pneumonia with elevated procalcitonin level. The patient also has some leukocytosis. The patient is currently being treated for community-acquired pneumonia with a combination Rocephin and Zithromax. Repeat chest x-ray showed some residual infiltration of the left lung base. Nevertheless, the clinic the patient is improved. Her white cell count is also improved. Acute hypoxemic respiratory failure, secondary to above, improved and the patient is currently on room air oxygen Acute leukocytosis, secondary to above, improved Chronic stage III kidney disease, creatinine is stable History of prostate cancer status post chemoradiation History of non-Hodgkin's lymphoma History of hyperlipidemia History of GERD without esophagitis Plan: Chest x-ray shows stable left lower lobe pulmonary filtration and repeat chest x-ray from yesterday shows stable infiltrates of the left lung. Clinically patient is improved. The patient is currently on room air oxygen. Continue empiric antibiotics in the form of azithromycin and Rocephin, the patient can be discharged home on oral antibiotics either today or within the next 24 hours. Blood cultures are pending. Negative for influenza, RSV, COVID Procalcitonin elevated at 1.73 White cell count is improving. The patient is ambulating. We will continue to follow
--- NOTE | 2023-10-20 13:09 | P.DS ---
Providers Date of admission: 10/18/23 09:24 Attending physician: Saurabh Mccracken Consults: 10/17/23 13:09 Consult Physician Urgent Consulting Provider: Rashawn Lind Consult Reason/Comments: Pneumonia Do you want consulting provider notified?: Yes 10/17/23 13:10 Consult Physician Urgent Consulting Provider: Crystal Bryant Consult Reason/Comments: Pneumonia Do you want consulting provider notified?: Yes Primary care physician: [facility] Course: HISTORY OF PRESENT ILLNESS: History of present illness; patient is a 83-year-old gentleman with past medical history significant for hyperlipidemia was brought to the ER for complaint of not feeling well for the last few days. Patient stated that he was all right till Wednesday when he started noticing that he was getting weak and feeling lethargic. Patient stated he felt as if he had no energy to do any activity. Patient is also noticing that he was getting chills and felt feverish, patient did not check his fever at home. Patient also complaining of cough is nonproductive. Complaining of shortness of breath on exertion as well. Denies any nausea, vomiting abdominal pain. There is no complaint of orthopnea or PND. Denies any chest pain. Over the last day his symptoms worsen and he felt very weak and decided come to the ER 10/18/2023: He was hospitalized in the afternoon yesterday for sepsis from left- sided pneumonia he is procalcitonin is high, lactic acidosis I, was hypoxic, slight bit symptomatic with elevated white blood cell positive chest x-ray. Was kept on IV antibiotic along with updraft treatment and O2 is feeling slightly better today had seen pulmonary will be seen infectious disease as well waiting for culture. 10/19/2023: Will continue to feel better and improved, oxygen level is much better is remain on Rocephin and azithromycin and his pulse ox is 91% on room air continue to drop down through the night. Patient hopefully would not require any oxygen at home when he is discharged. Will continue for an extra day of IV antibiotic till tomorrow switch patient to oral hopefully prepare for going home. Repeat chest x-ray to see the progression on the chest x-ray if there is any decline compared to before. 10/20/2023: Patient is doing much better, his oxygen level without oxygen is above 92 percentile, he is remain on Rocephin and azithromycin, will add Medrol Dosepak and continue Ventolin inhaler, chest x-ray showed significant improvement compared to before also white blood cell is down to 10,000 the patient is feeling much better. Will be evaluated by pulmonary today and if agreed to send him home today to follow as an outpatient in the next 48 hours. REVIEW OF SYSTEMS: CONSTITUTIONAL: Well-developed mild respiratory distress EYES: No icterus sclerae, no conjunctivitis. EARS, NOSE, MOUTH, THROAT, and FACE: No sore throat, lymphadenopathy, carotid bruits or deformity. RESPIRATORY: Slight shortness of breath with cough and wheezes. CARDIOVASCULAR: Positive PND orthopnea palpitation. GASTROINTESTINAL: No Abd pain, Nausea or vomiting, no Diarrhea or constipation, No GI Bleed, no distention or masses. GENITOURINARY: Negative for Hematuria or UTI, no kidney stones. INTEGUMENT/BREAST: Negative for any muscular injury with mild osteoarthritis.. HEMATOLOGIC/LYMPHATIC: Negative for bleed or purpura. MUSCULOSKELTAL: Negative for Myalgia or arthralgia. NEURLOGICAL: No LOC, Sz or syncope, blurred vision dizziness or abnormality.. BEHAVIORAL/PSYCH: Negative. ENDOCRINE: Negative. PHYSICAL EXAMINATION: General Appearance: Alert, cooperative, in mild respiratory distress. Neck HEENT: Supple, no lymphadenopathy, no thyroid enlargement, no carotid bruits. Lungs: Decreased breath sound bilateral especially the bases worse on the left on the right side positive fine rhonchi with crackles positive expiratory wheezes. Chest Wall: Decreased expansion with deep inspiration no tenderness and no deformity was found on exam, no costochondral pain or discomfort. Heart: Regular rate and rhythm, S1, S2 normal, no murmur, rub or gallop. Back: Symmetric, no curvature, ROM normal, no CVA tenderness. Abdomen: Soft, non-tender, bowel sounds active all four quadrants, no masses, no organomegaly. Extremities: Extremities normal, atraumatic, no cyanosis or edema. Pulses: 2+ and symmetric. Skin: Skin color, texture, tugor normal, no rashes or lesions. Neurologic: Alert oriented x3 cranial nerves II through XII intact, no motor deficit, no abnormal balance or gait. ASSESSMENT AND PLAN: _Sepsis: Much better so far recover continue on antibiotic which should be switched to doxycycline for total of 7 days. _Bacterial pneumonia: Will be off IV antibiotic switched to oral doxycycline and Medrol Dosepak continue Ventolin inhaler as well. _Acute respiratory failure: Secondary to COPD and pneumonia will continue current antibiotic along with O2 and supportive care. _Mild COPD: Will continue patient on albuterol/ipratropium along with O2 and Pulmicort. _Acute kidney injury with chronic kidney disease: Continue gentle hydration repeat CMP with lab. _Hypertension: Blood pressures under better control at this point. _History of non-Hodgkin lymphoma: No sign of recurrent lymphoma. _Hyperlipidemia: Has been on simvastatin we will continue medication. _BPH: No sign of obstruction watch for any urinary retention. Prognosis: Good. Discharge planning: His white blood cell is much better chest x-ray has improved and patient will be able to go home today. Hospital course: Patient was admitted to the hospital on 10/17/2023: Had sepsis with severe shortness of breath dyspnea and worsening pneumonia found to be septic with elevated white blood cell, elevated lactic acid and finding consistent with pneumonia in the left lower base also patient was having slight COPD exacerbation at the time. Initiate updraft treatment along with oxygen and was started on azithromycin and Rocephin has done quite well with seen pulmonary agree to continue current management plan. Patient has done 3 days of IV antibiotic and has improved significantly repeat chest x-ray has shown significant improvement also CBC shows a white blood cell down to 10,000. With the current improvement patient be able to be discharged home today to follow as an outpatient in the next 48 hours. Time spent on discharging patient was over 35 minutes. Patient Condition at Discharge: Good Plan - Discharge Summary New Discharge Prescriptions: New Albuterol Sulfate [Ventolin HFA] 2 puff INHALATION Q6H PRN #1 each PRN Reason: Shortness Of Breath Doxycycline Hyclate 100 mg PO AC-BID #14 cap methylPREDNISolone Dose Pack [Medrol Dose Pack] 4 mg PO DIRECTED #21 tab guaiFENesin [Mucinex] 600 mg PO Q12HR #14 tab Continue Omeprazole 20 mg PO DAILY allopurinoL 100 mg PO DAILY Rosuvastatin [Crestor] 10 mg PO HS Glucosamine/Chondr Romero A Sod [Osteo Bi-Flex Caplet] 1 tab PO DAILY Vitamin C(Unknown Dose) 1 tab PO DAILY Empagliflozin [Jardiance] 10 mg PO DAILY Vitamin D3(Unknown Dose) 1 tab PO DAILY Discharge Medication List Omeprazole 20 mg PO DAILY 01/08/16 [History] Empagliflozin [Jardiance] 10 mg PO DAILY 10/17/23 [History] Glucosamine/Chondr Romero A Sod [Osteo Bi-Flex Caplet] 1 tab PO DAILY 10/17/23 [History] Rosuvastatin [Crestor] 10 mg PO HS 10/17/23 [History] Vitamin C(Unknown Dose) 1 tab PO DAILY 10/17/23 [History] Vitamin D3(Unknown Dose) 1 tab PO DAILY 10/17/23 [History] allopurinoL 100 mg PO DAILY 10/17/23 [History] Albuterol Sulfate [Ventolin HFA] 2 puff INHALATION Q6H PRN #1 each 10/20/23 [Rx] Doxycycline Hyclate 100 mg PO AC-BID #14 cap 10/20/23 [Rx] guaiFENesin [Mucinex] 600 mg PO Q12HR #14 tab 10/20/23 [Rx] methylPREDNISolone Dose Pack [Medrol Dose Pack] 4 mg PO DIRECTED #21 tab 10/20/23 [Rx] Follow up Appointment(s)/Referral(s): Saurabh Mccracken MD [Primary Care Provider] - 1-2 days Merry Ramos MD [STAFF PHYSICIAN] - 1 Week Patient Instructions/Handouts: Community Acquired Pneumonia (GEN) Discharge Disposition: HOME SELF-CARE
--- NOTE | 2023-10-20 14:24 | P.PN ---
Subjective Progress Note Date: 10/20/23 Principal diagnosis: Reason for follow-up is pneumonia Patient is a 83-year-old male with a past medical history significant for reflux hyperlipidemia , non-Hodgkin lymphoma and prostate cancer patient was brought into the hospital for evaluation of increasing shortness of breath and weakness, patient be diagnosed with a left lower lobe pneumonia. On today's evaluation that is 10/20/2023,the patient remains to be afebrile, patient is on room air not requiring supplemental oxygen and denies any shortness of breath no chest pain and cough has decreased intensity.Patient denies having any nausea or vomiting, no abdominal pain and no diarrhea, feeling better. Patient white count of 10.52 creatinine is 1.6 blood culture negative Objective - Vital Signs Vital signs: Vital Signs Temp 98.6 F 10/20/23 07:41 Pulse 78 10/20/23 07:41 Resp 18 10/20/23 07:41 BP 119/81 10/20/23 07:41 Pulse Ox 92 L 10/20/23 07:41 FiO2 Intake & Output 10/19/23 10/20/23 10/20/23 18:59 06:59 18:59 Other: Voiding Method Toilet Urinal # Voids 2 4 - Exam GENERAL DESCRIPTION: An elderly male l up in the chair in no distress RESPIRATORY SYSTEM: Unlabored breathing , coarse crackles at the left base HEART: S1 S2 regular rate and rhythm , ABDOMEN: Soft , no tenderness EXTREMITIES: No edema feet - Labs CBC & Chem 7: 10/20/23 04:30 10/20/23 04:30 Labs: Abnormal Lab Results - Last 24 Hours (Table) 10/20/23 10/20/23 Range/Units 04:30 04:30 WBC 10.52 H (4.50-10.00) X 10*3/uL RBC 3.45 L (4.40-5.60) X 10*6/uL Hgb 11.3 L (13.0-17.0) g/dL Hct 34.3 L (39.6-50.0) % MCV 99.4 H (80.0-97.0) FL MCH 32.8 H (27.0-32.0) pg Creatinine 1.6 H (0.6-1.5) mg/dL Est GFR (CKD-EPI) 42 L (>=60) Glucose 132 H (70-110) mg/dL Calcium 8.6 L (8.7-10.3) mg/dL AST 77 H (14-35) U/L ALT 60 H (10-49) U/L Total Protein 5.0 L (6.2-8.2) g/dL Albumin 3.1 L (3.8-4.9) g/dL Microbiology - Last 24 Hours (Table) 10/17/23 13:48 Blood Culture - Preliminary Blood 10/17/23 13:23 Blood Culture - Preliminary Blood Assessment and Plan (1) Allergy to multiple antibiotics Status: Acute Code(s): Z88.1 - SNOMED Code(s): 662023636 (2) Pneumonia Status: Acute Code(s): J18.9 - PNEUMONIA, UNSPECIFIED ORGANISM SNOMED Code(s): 406448133 Plan: 1patient presented to hospital with increasing shortness of breath and cough bringing up some yellow sputum in this patient with elevated white count and evidence of left lobe pneumonia likely community-acquired pneumonia. 2 procalcitonin level of 1.73, urine for Legionella antigen is negative. Sputum cultures pending 3patient is afebrile patient white count normalized blood culture negative sputum collected will benefit from finishing therapy with oral Ceftin Dictation was produced using [employer] dictation software. please excuse any grammatical, word or spelling errors. Time with Patient: Less than 30
== END 2023-10-20 14:11 | disposition home or self-care (01) | DRG 871 ==
LOC: EC 10:57 → 4SSUR 13:42 → OBSVTOIN 10-18 09:24
PROVIDERS: ADMIT Internal Medicine Geriatric Medicine; ATTEND Internal Medicine Geriatric Medicine
DX: A41.9 Sepsis, unspecified organism (principal); J18.9 Pneumonia, unspecified organism; J96.01 Acute respiratory failure with hypoxia; N17.9 Acute kidney failure, unspecified; J44.0 Chronic obstructive pulmonary disease with (acute) lower respiratory infection; J44.1 Chronic obstructive pulmonary disease with (acute) exacerbation; B37.49 Other urogenital candidiasis; N18.30 Chronic kidney disease, stage 3 unspecified; I12.9 Hypertensive chronic kidney disease with stage 1 through stage 4 chronic kidney disease, or unspecified chronic kidney disease; E78.5 Hyperlipidemia, unspecified; K21.9 Gastro-esophageal reflux disease without esophagitis; N40.0 Benign prostatic hyperplasia without lower urinary tract symptoms; Z87.891 Personal history of nicotine dependence; Z79.84 Long term (current) use of oral hypoglycemic drugs; Z92.21 Personal history of antineoplastic chemotherapy; Z92.3 Personal history of irradiation; Z85.72 Personal history of non-Hodgkin lymphomas; Z85.46 Personal history of malignant neoplasm of prostate; Z11.52 Encounter for screening for COVID-19; Z88.0 Allergy status to penicillin; Z79.899 Other long term (current) drug therapy; Z88.1 Allergy status to other antibiotic agents
CPT/HCPCS: 36415; 71046; 80053; 81003; 83605; 84145; 84484; 85025; 85027; 85610; 85730; 86140; 87040; 87070; 87205; 87449; 87636; 93005; 96361; 96365; 96366; 96367; 99285

== ENCOUNTER → 2024-05-15 | Outpatient (CLI) | payer MEDICARE, BC | END | disposition home or self-care (01) | LOC: LABWHC1 13:33 | PROVIDERS: ATTEND Urology | DX: C61 Malignant neoplasm of prostate (principal) | CPT/HCPCS: 36415; 84153 ==